=== PATIENT | male | born 1950 | race Caucasian/White ===

== ENCOUNTER 2017-08-02 11:52 | Outpatient (CLI) | payer MEDICARE | END 2017-08-02 11:53 | disposition home or self-care (01) | LOC: BICRAD 11:52 | PROVIDERS: ATTEND Internal Medicine Endocrinology, Diabetes & Metabolism | DX: R06.02 Shortness of breath (principal); R91.8 Other nonspecific abnormal finding of lung field | CPT/HCPCS: 71046 ==

== ENCOUNTER 2017-10-12 15:58 | Outpatient (CLI) | payer MEDICARE ==
--- NOTE | 2017-10-12 16:44 | RAD ---
CHEST 2 VIEWS: Date: 10/12/17 HISTORY: Bronchitis. COMPARISON: CT chest dated 08/07/17. FINDINGS: There is abnormal mass in the left upper lobe with peripheral pneumonitis. There are advanced emphyse matous changes. There is also a possible nodule in the left lower lobe. IMPRESSION: 1. Large left upper lobe mass concerning for malignant process. 2. Abnormal density in the left lower lobe concerning for metastatic disease. POS: [facility]
== END 2017-10-12 15:59 | disposition home or self-care (01) ==
LOC: SCSRAD 15:58
PROVIDERS: ATTEND Family Medicine
DX: J40 Bronchitis, not specified as acute or chronic (principal); R91.8 Other nonspecific abnormal finding of lung field
CPT/HCPCS: 71046

== ENCOUNTER → 2017-10-16 | Outpatient (CLI) | payer MEDICARE ==
[~2017-10-16] MED LIST: Gadobenate Dimeglumine 529 MG/1 ML (20ML VIAL) ONE
--- NOTE | 2017-10-16 09:36 | ULT ---
SONOGRAM ABDOMEN COMPLETE: History: Abdominal pain. Cirrhosis. FINDINGS: Gallbladder wall thickening, in the setting of ascites and chronic liver disease, is nonspecific. No shadowing stones are visible. Common duct is 0.4 cm. Liver is small, heterogeneous and has a nodular contour. Small amount of free fluid within the abdomen is predominately in the right upper quadrant. Spleen is 13.9 cm length. Portal vein is patent. The kidneys and visualized portions of the abdominal aorta, IVC, and pancreas are unremarkable. IMPRESSION: 1. Cirrhotic appearance of the liver. Findings of portal venous hypertension including ascites and mi ld splenomegaly. 2. No evidence of biliary obstruction. POS: [facility]
--- NOTE | 2017-10-16 10:36 | MRI ---
MRI ABDOMEN WITHOUT AND WITH CONTRAST: History: Cirrhosis. Dyspepsia. Comparison: CT abdomen/pelvis, 12-01-11 Technique: Multiplanar, multisequence MR images were obtained of the abdomen without and with IV cont rast. FINDINGS: This exam is limited secondary to significant motion artifact. The liver is nodular and cirrhotic. Th ere is a moderate amount of ascites. There are multiple lesions scattered throughout the liver demons trating high T2 signal. These lesions are irregular in appearance and have peripheral rim enhancement . This central aspect of these lesions do not enhance completely and no significant washout is seen w hen comparing the arterial phase images to the delayed phase images. The largest lesion measures 6.2 cm in size. These lesions are nonspecific but are concerning for either metastatic disease or multifo jose abscesses in the liver. These do not have characteristics of hemangiomas or hepatocellular carcin juan. The kidneys, adrenal glands, gallbladder, spleen, and pancreas are unremarkable. No abdominal adenopathy is seen. There are enhancing lesions within the vertebral bodies in the thora cic spine measuring up to 3.5 cm in size, concerning for osseous metastases. IMPRESSION: 1. Cirrhosis with ascites. 2. Multiple scattered lesions throughout the liver are concerning for hepatic metastatic disease. Pro bable source for this metastatic disease is uncertain. 3. There appear to be enhancing lesions within some of thoracic vertebral bodies concerning for osseo us metastases. POS: [facility]
== END ==
LOC: SCSULT 07:06
PROVIDERS: ATTEND Internal Medicine Gastroenterology
DX: K74.60 Unspecified cirrhosis of liver (principal); K30 Functional dyspepsia; R93.8 Abnormal findings on diagnostic imaging of other specified body structures; R18.8 Other ascites; K76.9 Liver disease, unspecified; M89.9 Disorder of bone, unspecified; R16.1 Splenomegaly, not elsewhere classified; K76.6 Portal hypertension
CPT/HCPCS: 74183; 76700; A9579

== ENCOUNTER 2017-10-24 16:50 | Inpatient (IN) | payer MEDICARE ==
[2017-10-24 17:36] LABS: #Eosinphils 0.1 thou/uL (0.0-0.7); #Lymphocytes 0.7 thou/uL (1.20-3.40); #Monocytes 0.5 thou/uL (0.11-0.59); #Neutrophils 3.7 thou/uL (1.40-6.50); %Basophils 0.9 % (0.0-1.0); %Eosinophils 1.2 % (0.0-10.0); %Lymphocytes 13.3 % (21.0-51.0); %Monocytes 9.3 % (0.0-10.0); %Neutrophils 75.3 % (42.0-75.0); Hemoglobin 13.7 g/dL (14.0-18.0); Mean Corpuscular HGB CONC 34.2 g/dL (32.0-36.0); Mean Corpuscular Hemoglobin 35.6 pg (27.0-31.0); Mean Platelet Volume 7.1 fL (7.4-10.4); Platelet Count 173 thou/uL (130-400); RBC Distribution Width 12.7 % (11.5-14.5); Red Blood Cell (RBC) Count 3.84 mill/uL (4.70-6.10); White Blood Cell (WBC) Count 4.9 thou/uL (4.8-10.8)
[2017-10-24] MEDS ORDERED: Acetaminophen 500 MG TAB ONE (17:52)
[2017-10-24] MEDS ORDERED: Lidocaine Viscous Sol 2% 15 ml UD Cup ONE (17:52)
[2017-10-24 17:59] LABS: ALT (SGPT) 20 U/L (8-55); AST (SGOT) 50 U/L (5-34); Alkaline Phosphatase 242 U/L (40-150); Anion Gap 14 mmol/L (10-20); BUN (Urea Nitrogen) 26 mg/dL (8.4-25.7); CK (CPK) 57 U/L (30-200); Calc. Creatinine Clearance 0 mL/min (70-130); Carbon Dioxide 22 mmol/L (23-31); Chloride 104 mmol/L (98-107); Estimated GFR-MDRD 64; Globulin 3.8 g/dL (2.4-3.5); Glucose 182 mg/dL (80-115); Potassium 4.4 mmol/L (3.5-5.1); Protein, Total 6.8 g/dL (5.8-8.1); Sodium 136 mmol/L (136-145)
[2017-10-24] MEDS ORDERED: Ondansetron HCl/PF 4 MG/2 ML Vial IVP PRN (19:06)
--- NOTE | 2017-10-24 20:57 | RAD ---
PA AND LATERAL OF THE CHEST: 10/24/17 INDICATION: History of lung mass. IMPRESSION: The examination is not appreciably changed from the comparison dated 10/12/17. Linear opacity within the left upper lobe persists, though it is slightly less prominent. Chronic janis g changes are similar. Mild cardiomegaly is stable. No pleural effusion or pneumothorax is evident. n o acute osseous abnormality is evident. Would recommend a followup CT of the thorax to further evaluate the etiology of the opacity in the le ft upper lobe. There is concern for possible nodularity in the left lung base on the comparison radio graph. It is not as well detailed on the current examination. If there is concern for possible metast atic disease within the lungs, this can be further assessed with a followup CT. Code T POS: [facility]
[2017-10-24] MEDS: Sodium Chloride 0.9% 1,000 ML IV SCH (21:38)
[2017-10-24] MEDS: Zolpidem Tartrate 5 MG TAB PO PRN (21:39)
[2017-10-24] MEDS: HYDROcodone/Acetaminophen 7.5/325 mg Tablet PO PRN (21:39)
[2017-10-24 22:27] VITALS: BMI 34.6
--- NOTE | 2017-10-25 01:56 | HP ---
DATE OF CONSULTATION: 10/24/2017 HISTORY OF PRESENT ILLNESS: This is a 67-year-old white male being admitted for dehydration and weak ness. Patient's history is somewhat complicated. He has a history of bladder cancer followed by Dr. Jones and treated with intravesicular BCG several months prior. He has completed that therapy and continues to see Urology. However, several months ago, he was also diagnosed with TB and has been f ollowed by Dr. Gerardo and received several medications including INH, rifampin, B6, and ethambutol. T he ethambutol was eventually stopped. In the meantime, he was seen several weeks ago by myself in [facility] office and he was complaining of moderate cough. A chest x-ray was done, which revealed a large le ft upper lobe lung mass. The patient then went to see Dr. Aguilar at [facility] who has been working [facility] up for the lung mass. Radiology felt it was not amenable to biopsy to the chest wall and suggested a possible bronchoscopy. In the meantime, x-rays revealed lesions in the liver and the spine. He w as referred to Dr. Lewis where a liver biopsy is pending. He did receive a paracentesis and 4 liters of fluid was withdrawn, which did not reveal any malignant cells. He was then started on spironolact one 100 daily, and Lasix 40 daily. When the lung mass was diagnosed he was also started on Levaquin daily. He presents today in the office, complaining of severe dry and painful throat. His throat wa s noted to be quite red and dry, suggestive of a possible Thuy esophagitis. He was then referred to the emergency room for hydration. The patient was very resistant to being admitted to the [facility]; however, he finally agreed to be admitted. Other workup has included negative carotid Doppler ult rasound as well as negative lower extremity Doppler study. He has been followed by Dr. Gorman and a stress test is pending. PAST MEDICAL HISTORY: Hypertension; diabetes; hyperlipidemia; sleep apnea on CPAP, 75-pack a year to bacco history; erectile dysfunction; diverticulosis; history of peptic ulcer disease; history of feve r blisters; arthritis; bladder cancer, diagnosed in 04/2015; and skin cancer. ALLERGIES: None. PAST SURGICAL HISTORY: Include vocal cord nodule removal by Dr. Arndt in 07/2006, tonsillectomy, ci rcumcision, eyelid surgery in 2013, facial basal cell carcinoma removal in 2014. MEDICATIONS: Gabapentin 300 three times a day, INH 300 daily, pyridoxine 50 mg daily, rifampin 300 t wo daily, vitamin D daily, fish oil daily, aspirin 81 daily, losartan 25 1/2 tab q.a.m., previously o n Levaquin and previously on Medrol. FAMILY HISTORY: Father at 62 of lung cancer. Mother at 78 with heart failure and l eukemia. Sister with breast cancer, . Several include prostate cancer and one sister with breast cancer at age of 29. SOCIAL HISTORY: Patient has a 75-pack a year tobacco history, he quit in 2004. Drinks alcohol occas ionally. He runs a very successful construction company. He is . He has 4 daughters. Drink s occasional coffee with minimal exercise. REVIEW OF SYSTEMS: As above. PHYSICAL EXAMINATION: VITAL SIGNS: Temperature is 98.5, heart rate was 96, blood pressure 120/65, O2 sat 94. GENERAL: The patient was in moderate distress, mainly because of dry mouth. NECK: Supple. HEART: Regular rate and rhythm. LUNGS: Relatively clear, may be decreased breath sounds in left side. ABDOMEN: Obese, distended with ascites present. EXTREMITIES: With no edema. LABORATORY DATA: White count 4.9, H&H 13.7 and 40.0, platelet 173,000. Sodium 136, potassium 4.4, c reatinine 1.15, BUN 26, glucose 182. ASSESSMENT: 1. Left lung mass, rule out primary cancer, rule out tuberculous lesion, rule out pneumonia. 2. Liver lesions, rule out primary versus metastatic lesions. 3. Liver cirrhosis, probably leading to ascites. Recent paracentesis was negative for malignancy. AFP was also normal. 4. History of recent bladder cancer, completing intravesicular BCG. 5. Oral yeast esophagitis. 6. Diabetes. 7. Hypertension. 8. Hyperlipidemia. 9. Spinal lesions, rule out mets. 10. History of recent TB being treated by Dr. Gerardo. 11. 75-pack a year tobacco history. PLAN: 1. We will discuss case with Dr. Lewis, Dr. Gerardo, and Dr. Gorman. It might be in patient's best int erest simply complete workup while in the hospital. He has outpatient stress test pending on Sunday and another procedure pending on Sunday. However, the patient remains in moderate distress. 2. Resume spironolactone 100 daily and Lasix 40 daily. Consider decreasing the dose. 3. Insulin sliding scale. 4. Initiate Diflucan. 5. Consult Dr. Lewis. 6. Consult Dr. Gerardo. 7. Consult Dr. Gorman. 8. Consult Pulmonary to evaluate the lung mass. 9. For tonight, we will hydrate the patient and initiate Diflucan and make further decisions in the a.m.
[2017-10-25] MEDS: HYDROcodone/Acetaminophen 7.5/325 mg Tablet PO PRN ×4 (04:53→19:28)
[2017-10-25 05:26] LABS: ALT (SGPT) 19 U/L (8-55); AST (SGOT) 45 U/L (5-34); Alkaline Phosphatase 233 U/L (40-150); Anion Gap 12 mmol/L (10-20); BUN (Urea Nitrogen) 23 mg/dL (8.4-25.7); Bilirubin, Total 1.8 mg/dL (0.2-1.2); Calc. Creatinine Clearance 101 mL/min (70-130); Carbon Dioxide 24 mmol/L (23-31); Chloride 105 mmol/L (98-107); Estimated GFR-MDRD 62; Globulin 3.7 g/dL (2.4-3.5); Glucose 181 mg/dL (80-115); Potassium 4.4 mmol/L (3.5-5.1); Protein, Total 6.7 g/dL (5.8-8.1); Sodium 137 mmol/L (136-145)
[2017-10-25 05:34] LABS: #Eosinphils 0.1 thou/uL (0.0-0.7); #Lymphocytes 0.8 thou/uL (1.20-3.40); #Monocytes 0.4 thou/uL (0.11-0.59); #Neutrophils 2.6 thou/uL (1.40-6.50); %Basophils 1.1 % (0.0-1.0); %Eosinophils 1.3 % (0.0-10.0); %Lymphocytes 19.7 % (21.0-51.0); %Monocytes 10.8 % (0.0-10.0); %Neutrophils 67.2 % (42.0-75.0); Hemoglobin 13.4 g/dL (14.0-18.0); Mean Corpuscular Hemoglobin 35.9 pg (27.0-31.0); Mean Platelet Volume 6.9 fL (7.4-10.4); Platelet Count 175 thou/uL (130-400); RBC Distribution Width 12.8 % (11.5-14.5); Red Blood Cell (RBC) Count 3.73 mill/uL (4.70-6.10); White Blood Cell (WBC) Count 3.8 thou/uL (4.8-10.8)
--- NOTE | 2017-10-25 08:07 | PRG ---
DATE OF SERVICE: 10/25/2017 SUBJECTIVE: The patient is feeling much better this morning. He appears in much less distress afte r hydration. No reported fever. OBJECTIVE: VITAL SIGNS: Temperature 98.3, pulse 88, respirations 16, blood pressure 132/67. Pulse ox 94. HEART: Regular rate and rhythm. LUNGS: Clear. ABDOMEN: Soft with ascites. EXTREMITIES: With no edema. LABORATORY: Sodium 137, potassium 4.4, creatinine 1.18, BUN 23, glucose 181. White count 3.8, H&H 13 and 39, platelet 175. Chest x-ray unchanged. ASSESSMENT: 1. Left lung mass, rule out primary cancer versus TB versus pneumonia. 2. Liver lesion, rule out primary versus metastatic lesion. 3. Liver cirrhosis with ascites. 4. History of recent bladder cancer treated with intravesicular BCG. 5. Yeast esophagitis. 6. Diabetes. 7. Hypertension. 8. Hyperlipidemia. 9. Spinal lesion, rule out. 10. History of recent TB being treated by Dr. Gerardo, possibly from bladder treatment. 11. Twenty-five year tobacco history. PLAN: 1. Dr. Lewis, Dr. Gerardo and Dr. Bush to see the patient today. 2. Insulin sliding scale. 3. Viscous lidocaine swallow for throat discomfort. May have yeast esophagitis. 4. We will perform a followup CT scan of the chest.
--- NOTE | 2017-10-25 08:41 | CT ---
CT CHEST WITH CONTRAST: Technique: Multiple axial tomograms were obtained through the chest with IV enhancement. Indications: Abnormal mass density seen in the left upper lung on chest radiograph. FINDINGS: There is a left hilar mass which is suspicious for neoplasm. This mass measures 4.1 cm AP dimension i n the axial plane. This mass encompasses and narrows the left main pulmonary artery. There is extensi on of this soft tissue mass into the left upper lung parenchyma. The parenchymal portion of this mass in the axial plane measures 4.7 cm AP dimension. There is cardiomegaly with vascular congestion. Interstitial prominence is present suggesting mild in terstitial edema. Small left pleural effusion. There is a 7 mm nodule in the left lower lobe peripherally. This nodule was present on the prior exam in 2006. There is a 7 mm nodule in the right middle lobe and another smaller 4-5 mm nodule in the right middle lobe. Images through the upper abdomen reveal to large volume ascites. There are numerous low density lesio ns seen in the liver which are suspicious for metastatic disease. There is a 3.5 cm low density in th e peripheral right lobe along the lateral border of the liver. There is a 2.5 cm lesion in the instrument worker ior left lobe and an ill-defined 2.5 cm lesion in the more anterior left lobe. There are other smalle r lesions throughout both lobes of the liver. IMPRESSION: 1. Left hilar mass lesion with mass extending into the parenchyma of the left upper lobe as described above. Findings are consistent with neoplasm. 2. There is cardiomegaly with vascular congestion and evidence of interstitial edema. 3. Small left effusion. 4. Moderate abdominal ascites noted on images through the upper abdomen. 5. Numerous low density lesions in the liver are concerning for metastatic disease. 6. There are scattered small pulmonary nodules seen as described above. POS: [facility]
[2017-10-25] MEDS ORDERED: Lidocaine 4% PF 5 ML AMP NEB SCH (09:15)
--- NOTE | 2017-10-25 10:01 | CON ---
DATE OF CONSULTATION: 10/25/2017 CONSULTING: Dr. Rell Barba REASON FOR CONSULTATION: Lung mass. HISTORY OF PRESENT ILLNESS: This is a 67-year-old male who was admitted through Dr. Barba's office to the hospital after presenting yesterday with dehydration, weakness and voice hoarseness. He has a quite convoluted medical history. In 2015, he was diagnosed with transitional cell carcinoma of the bladder. At some point earlier this year he received BCG treatment to that and developed symptoms o f what Dr. Gerardo feels is disseminated BCG, although that entity is difficult to prove. The patient has been on rifampin, INH and ethambutol for that. Apparently symptoms got so bad that he was seen a t [facility] and was intubated back in July and spent 3 days on mechanical ventila tion. At that time it was realized he had a lung mass. He also had liver metastasis and spinal meta stasis as well as ascites. Dr. Aguilar was involved in that workup and I believe the decision was ma de to biopsy the patient's liver percutaneously. The family states that Radiology cancelled the proc edure when they found that the patient had only been off aspirin one day prior to the procedure. A repeat biopsy was planned for this week. He had a paracentesis done last week with about 3 liters of fluid removed, but that was not diagnostic for cancer. I have had the opportunity today to sit down with Radiology and review the films from [facility]. He had a CT done about 3 weeks ago there. He also had a repeat CT done today here. It shows an approximate 4 x 6 left hilar lung mass radiating towards the apical posterior segment o f the left upper lobe. The liver metastases were noted. He also had significant ascites. It does n ot appear that the lung mass has changed in size much since that scan done [address] Barba has decided that the patient would benefit from having a diagnosis at this time while he i s in the hospital. Therefore, bronchoscopy is planned for tomorrow. PAST MEDICAL HISTORY: See above. Additionally, the patient has hypertension, diabetes mellitus type 2, hyperlipidemia, obstructive sleep apnea requiring CPAP, erectile dysfunction, peptic ulcer diseas e, arthritis, transitional cancer of the bladder, skin cancer. PAST SURGICAL HISTORY: 1. He had vocal cord nodule removed in 2006. 2. Tonsillectomy. 3. Circumcision. 4. Eyelid surgery. ALLERGIES: None. MEDICATIONS PRIOR TO ADMISSION: Gabapentin 300 mg take 3 times daily, INH 300 mg daily, paroxetine 5 0 mg daily, rifampin 300 mg - 2 tablets daily, vitamin D 2000 international units daily, fish oil 1 t ablet daily, aspirin 81 mg daily, losartan 12.5 mg daily, previously on Levaquin, previously on Medro l. FAMILY MEDICAL HISTORY: Father of lung cancer. Mother of heart failure and leukemia. Sis ter with breast cancer. SOCIAL HISTORY: The patient has a 2-3 pack per day history of smoking for about 25 years. He quit i n 2004. He occasionally drinks alcohol. He runs a construction company. He is , has 4 daugh ters. REVIEW OF SYSTEMS: Remarkable for dysphagia, odynophagia, vocal cord hoarseness. He has lost a sign ificant amount of weight. He is very weak. Otherwise, 12 point review of systems negative. PHYSICAL EXAMINATION: VITAL SIGNS: Temperature 97.5, pulse 91, respirations 24, O2 sat 91% on room air, blood pressure 111 /56. HEENT: Pupils react. Sclerae anicteric. Oropharynx; he has candidiasis on his tongue. NECK: No JVD. LUNGS: He has a few wheezes heard on the left chest. Right side clear. CARDIAC: S1, S2 regular. No audible murmur, rub or gallop. ABDOMEN: Distended. Ascites present. EXTREMITIES: No clubbing, cyanosis, or edema. LABORATORY DATA: White blood cell count 3.8, hematocrit 39.5, platelet count 175. Sodium 137, potas sium 4.4, chloride 105, CO2 24, BUN 23, creatinine 1.2, glucose 181, alkaline phosphatase 233. Review of the CT films and chest x-ray was performed - see what is written above in history of prese nt illness. ASSESSMENT: 1. Left upper lobe lung mass which is most likely malignancy. 2. Disseminated BCG. The patient does not have a mycobacterial tuberculosis infection. 3. Transitional cell cancer of the bladder. PLAN: Bronchoscopy tomorrow. This will be done under general anesthesia. I discussed the risk of t he procedure with the patient including bleeding, infection, accidental pneumothorax and possible moisés ction to the sedation. He is agreeable to proceed. The patient will be seen in consultation by GI f or possible paracentesis and also be seen in consultation by Oncology. This consultation encompassed 70 minutes time, of that time, greater than 50% was spent with the pa tracy, the patient's family, and on the patient's unit in the hospital.
[2017-10-25] MEDS: Enoxaparin Sodium 40 MG/0.4 ML SYRINGE SC SCH (10:39)
[2017-10-25] MEDS: Lidocaine Viscous Sol 2% 15 ml UD Cup SSW PRN ×2 (10:46→18:25)
[2017-10-25] MEDS ORDERED: Fluconazole In NaCl,Iso-Osm 200 MG in Premix Bag 1 BAG IVPB SCH (11:00)
[2017-10-25] MEDS ORDERED: ADMIXTURE FEE CHEMO IVPB SCH (11:15)
[2017-10-25] MEDS ORDERED: NACL ISO OSM IVPB SCH (11:15)
[2017-10-25] MEDS ORDERED: FLUCONAZOLE IVPB SCH (11:15)
[2017-10-25 13:22] LABS: INR-International Normal Ratio 1.1; PTT 41.4 SEC (22.9-36.1); Prothrombin Time 14.3 SEC (12.0-14.7)
--- NOTE | 2017-10-25 13:31 | CON ---
DATE OF CONSULTATION: 10/25/2017 GI INPATIENT CONSULTATION NOTE REQUESTING PHYSICIAN: Dr. eRll Barba. REASON FOR CONSULTATION: Liver lesions and cirrhosis. HISTORY OF PRESENT ILLNESS: Mina Redmond Jr. is a 67-year-old gentleman, patient of my GI colleague, Dr. Francisco Lewis. Mr. Redmond has a complicated recent medical history. He was receiving BCG treatment f or bladder cancer earlier this year. He developed what was thought to represent a disseminated BCG a nd has been treated for this under the direction of Dr. Gerardo, he was hospitalized in July at the [facility] with respiratory issues, and at that time, imaging demonstrated a left-sided lung mass. He has been undergoing some workup for this. Through this time, the patient also began to have issues with abdom inal distention and was found to have ascites. Dr. Lewis has been working up for this. Recent MRI on 10/16/2017 demonstrated nodular and cirrhotic liver contour, but also multiple lesions in the liver measuring up to 6.2 cm. These lesions were thought to represent metastatic disease versus abscesses and did not have an appearance consistent with hepatocellular carcinoma. There are also multiple oss eous lesions in the thoracic spine most consistent with metastatic disease. Dr. Lewis performed some further lab workup for the liver. The patient had a positive ZAIDA, but negative viral hepatitis serol ogies, ferritin was mildly elevated, but hereditary hemochromatosis genetic testing showed only heter ozygosity for the H63D mutation, so no hemochromatosis. AFP was normal at 2.5. Dr. Lewis send him fo r first paracentesis, 4 liters were removed a week ago on 10/17/2017. Fluid cytology was negative. The SAAG was 2.8, signifying consistency with portal hypertension. Dr. Lewis started the patient on L asix 40 mg daily and spironolactone 100 mg daily, but the patient only took 3 days of this. He says that he felt a lot better after the paracentesis, but that now he is again having uncomfortable abdom inal distention and some associated pain and he would like more fluid removed as possible. He was ad mitted to the hospital yesterday and found to have some mild dehydration and he is going to be gettin g further workup for the lung mass. Dr. Bush has seen him and bronchoscopy is scheduled for [facility]. The patient was also noted to have a sore throat and had developed hoarseness just over the pas t week, and was started on fluconazole for what appears to be oropharyngeal Thuy. REVIEW OF SYSTEMS: Full review of systems including constitutional, head, eyes, ears, nose, throat, GI, , cardiovascular, respiratory, musculoskeletal, and neurologic systems is negative except as no bandar in HPI. PAST MEDICAL HISTORY: 1. History of bladder cancer, status post BCG treatments earlier this year. 2. Possible disseminated BCG, treated by Dr. Gerardo. 3. Hypertension. 4. Hyperlipidemia. 5. Diabetes. 6. Obstructive sleep apnea. 7. A 75 pack years of smoking history, quit in 2004. 8. Erectile dysfunction. 9. Diverticulosis. 10. Peptic ulcer disease. 11. Cirrhosis secondary to nonalcoholic steatohepatitis. 12. Left lung mass, currently being worked up. ALLERGIES: No known drug allergies. OUTPATIENT MEDICATIONS: Gabapentin, INH, pyridoxine, rifampin, vitamin D, fish oil, aspirin 81 mg da melani, losartan. FAMILY HISTORY: Father at age 62 of lung cancer. Mother with heart failure and myla kemia. One sister of breast cancer at age 29. SOCIAL HISTORY: The patient is a 43-[id number]-fuxs history of smoking, but he quit in 2004. Alcohol use is occasional. PHYSICAL EXAMINATION: VITAL SIGNS: Temperature 98.5, pulse 87, blood pressure 122/67, 91% oxygen saturation on room air. GENERAL: A 67-year-old gentleman, appearing chronically ill, lying in bed comfortably in no distress . SKIN: No jaundice, no rash visible or palpable. EYES: No scleral icterus. Extraocular movements intact. There is some subtle white plaque to the t ongue. ENT: Mucous membranes moist, no oral lesions. LYMPH: No submandibular or supraclavicular lymphadenopathy. THYROID: Nontender to palpation. HEART: Regular rate and rhythm. LUNGS: Decreased breath sounds at the bases bilaterally. No wheezing. ABDOMEN: Moderately distended with ascites. There is a positive fluid wave. There is mild tenderne ss to palpation, but no guarding, rebound tenderness. EXTREMITIES: No peripheral edema. VESSELS: Radial pulses 2+ bilaterally. NEUROLOGICAL: Cranial nerves II-XII intact bilaterally. No focal deficits. LABORATORY STUDIES: Hemoglobin 13.4, WBC is 3.8, platelets 175. Sodium 137, potassium 4.4, BUN 23, creatinine 1.18, glucose 181, total bilirubin 1.8, alkaline phosphatase 233, AST 45, ALT 19, albumin 3.0. IMAGING STUDIES: On 10/25/2017, CT of the chest demonstrated a left hilar mass measuring up to 4.7 x 4.1 cm. This encompasses the left pulmonary artery. There is cardiomegaly and vascular congestion. There is a large amount of ascites with numerous liver lesions measuring up to 3.5 cm and metastati c disease is suspected. ASSESSMENT AND PLAN: 1. Ascites, it appears secondary to initial decompensation of cirrhosis, possibly also related to on set of pulmonary hypertension given compromise of the left pulmonary artery seen on chest imaging. T he patient has had only one paracentesis of 4 liters about a week ago, and has already reaccumulated ascites and uncomfortable. In the longer term, the patient will need diuretic therapy and I would ag ree with Lasix 40 mg daily and spironolactone 100 mg daily to start. I think this could be started t omorrow. I do think he would benefit from therapeutic paracentesis now, particularly with bronchosco py coming up tomorrow, so will order an ultrasound guided paracentesis. Cytology was negative on his recent paracentesis, but I think it would be reasonable to repeat the cytology on this tap. The pat ient also needs to be on a low sodium diet which he says he is trying to do. 2. Cirrhosis, it appears secondary to nonalcoholic steatohepatitis. Dr. Lewis performed fairly exten sive liver lab workup in recent weeks. Note he has a positive ZAIDA, but LFTs are not really elevated to the degree that I would expect with autoimmune hepatitis. Hemochromatosis genetic profile was neg ative. Viral hepatitis serologies were negative. 3. Multiple liver lesions, likely representing metastatic disease. 4. Left-sided lung mass, this is being evaluated by Dr. Bush. The patient is set for bronchoscop y tomorrow. 5. Oropharyngeal thrush. The patient was started on Diflucan and I agree with this. Thank you for the consultation. GI will follow along. Please call any time with questions or concer ns.
[2017-10-25] MEDS ORDERED: Sodium Bicarbonate 2.5 MEQ/5 ML VIAL ONE (13:49)
[2017-10-25] MEDS ORDERED: Lidocaine 1% PF 5 ML VIAL ONE (13:49)
--- NOTE | 2017-10-25 15:07 | ULT ---
SONOGRAPHIC GUIDED PARACENTESIS: HISTORY: Liver disease. Recurrent ascites. PROCEDURE: After explaining the procedure and answering all questions, sonographic survey of the abdomen shows a large amount of free fluid. Sterile technique, buffered local anesthesia, sonographic guidance, and a right lateral approach were used to carefully advance a 19 gauge Yueh needle and catheter into the free fluid. The catheter was left to drain a total volume of 5.5 L of dark yellow liquid. A portio n was sent to the laboratory for evaluation. The catheter was removed. Minimal fluid remained. The patient tolerated the procedure well and was returned in improved condition. IMPRESSION: Technically successful sonographic guided paracentesis. Laboratory analysis of the fluid is pending. POS: [facility]
[2017-10-25] MEDS ORDERED: ISOVUE-370 76%-LOCM 1 ML ONE (15:18)
[2017-10-25] MEDS: Zolpidem Tartrate 5 MG TAB PO PRN (20:16)
[2017-10-25] MEDS: Sodium Chloride 0.9% 1,000 ML IV SCH (21:02)
--- NOTE | 2017-10-25 21:29 | CON ---
DATE OF CONSULTATION: 10/25/2017 HISTORY OF PRESENT ILLNESS: A 67-year-old gentleman whom I had seen at [facility] as well as in the clinic. The patient had been diagnosed with bladder cancer, which had been managed with BCG installation at [facility]. At the beginning of this year, he developed fever. He was given INH and rifampin without clear-cut improvement. Subsequently, he decompensated and developed sepsis, respiratory failure and up intubated at [facility], admitted to the ICU. He was switched to INH, rifampin, ethambutol, and Levaquin with rapid improvement; eventually was discharged. I saw him on 08/29/2017. He had some diarrhea and had previously a mass identified in the left lung which had been followed by Dr. Aguilar at [facility]. We decided to stop levofloxacin. His C. difficile antigen test done and was negative. A few days later, he still had some loose stools, but had felt improvement. We decided to continue INH, rifampin, ethambutol for the diagnosis of disseminated BCG infection until 01/05/2018. I followed him up on 10/04/2017 and at that time, he had one episode of fever of 101 and he said on some days he felt great and some days he did not feel so well. Since then, patient has seen Dr. Lewis and he had an abdominal MRI, which showed cirrhosis with ascites, multiple scattered lesions throughout the liver which were concerning for metastatic disease. There are some enhancing lesions within some thoracic vertebral bodies as well concerning for osseous metastases. Subsequently, he had paracentesis, a large volume and I will see the results of the paracentesis evaluation. The next visit with his PCP, Dr. aBrba, the patient had developed a sore throat and dysphonia, general malaise. He was felt to have erythematous oral cavity and pharynx. He was admitted then. Dr. Bush has evaluated the patient as well because of the mass in the lungs and I think he is scheduled tomorrow for bronchoscopy. He is still dysphonic at this time, but somewhat improved. Denies any headaches, no visual symptoms, no back pain. The abdomen is much better after paracentesis. There is no genital symptoms, no joint symptoms outside the involved area, is oriented , follows commands. PAST MEDICAL HISTORY: Hypertension, type 2 diabetes, bladder cancer with BCG treatment at [facility], subsequent development of disseminated BCG infection, treated at the [facility] with improvement after 4-drug regimen; lung mass, which was identified during the stay at [facility] and this had been managed elsewhere. Now, the diagnosis of liver cirrhosis by imaging study. ALLERGIES: None. PAST SURGICAL HISTORY: Vocal cord nodule resected, tonsillectomy, facial basal cell carcinoma. MEDICATIONS: Gabapentin, INH, pyridoxine, rifampin, and ethambutol. FAMILY HISTORY: Lung cancer, leukemia. SOCIAL HISTORY: 75 pack year tobacco history, quit in 2004. Drinks occasionally. He is . CURRENT MEDICATIONS: Include, [place], DuoNeb, Lovenox, fluconazole, lidocaine. PHYSICAL EXAMINATION: VITAL SIGNS: T-max 98.5, blood pressure 120/56, pulse 88, respirations 16, O2 sat 95%. SKIN: Normal. Peripheral IV access. The patient is voiding spontaneously. No lymphadenopathy. HEENT: Ocular movements conjugate. Oral cavity appeared normal at this time. Numerous teeth in place with expected decay. NECK: Supple, jugular vein distention. LUNGS: Symmetric air entry. HEART: S1, S2, regular rate. ABDOMEN: Soft, no tenderness. No obvious ascites. No genital abnormalities. EXTREMITIES: No joint inflammatory activity. No edema. Pulses 1+ in dorsalis pedis. Moves extremities equally. NEUROLOGIC: Cognitive function appears to be intact. LABORATORY DATA: White cell count is 4.9 and 3.8. Hemoglobin 13.7, platelets 175, 67% neutrophils. INR 1.1. Sodium 137, creatinine 1.18, bilirubin 1.8, AST 45, ALT 19, alkaline phosphatase 233, albumin 3.0. Chest CT scan showed left hilar mass lesion with extension into the parenchyma of the left upper lobe , has cardiomegaly with vascular congestion, small left pleural effusion, moderate ascites, low density lesions in liver, scattered small pulmonary nodules. ASSESSMENT: 1. Hypertension. 2. Diabetes mellitus type 2. 3. Bladder cancer being managed with BCG instillation with disseminated BCG infection, currently on treatment with rifampin, ethambutol and INH. 4. Left lung lesion, which has been identified a few months ago, and has not yet been diagnosed. Now he has evidence of cirrhosis, other liver lesions, some possible spinal lesions as well. He has some evidence of dysphonia with possible laryngeal inflammatory changes. I did not see any evidence of oral candidiasis, but this is after a day or two of Diflucan. DISCUSSION: The liver lesions could correspond to either malignancy with metastasis or the granulomas from disseminated BCG infection. This is quite a few months after the original initiation of treatment, so I would not expect for him to still have those abnormalities in the liver, so I am afraid that this probably will end up turned out to be a malignancy. The lung lesion is very suspicious for primary lung malignancy as well. In terms of the treatment for the distant disseminated BCG infection, the plan was to continue rifampin, INH and ethambutol until January 05 and I would still probably continue this combination until that particular date. MTDD
[2017-10-26] MEDS: Acetaminophen 325 MG TAB PO PRN ×2 (01:45→21:28)
[2017-10-26] MEDS ORDERED: Lidocaine 2% 10 ML INJ ONE (06:54)
[2017-10-26] MEDS ORDERED: Albuterol Sulfate 2.5 mg/3 ml Neb ONE (07:01)
[2017-10-26] MEDS ORDERED: Midazolam HCl 2 mg/2 ml Vial ONE (07:37)
[2017-10-26] MEDS ORDERED: Dexmedetomidine 200 MCG/2 ML VIAL ONE (07:37)
[2017-10-26] MEDS ORDERED: Fentanyl 100 MCG/2 ML VIAL ONE (07:38)
[2017-10-26] MEDS ORDERED: Lidocaine 4% Topical Sol 50 ML BOT ONE (07:44)
[2017-10-26] MEDS ORDERED: Fluconazole In NaCl,Iso-Osm 200 MG in Premix Bag 1 BAG IVPB SCH (09:00)
[2017-10-26] MEDS: HYDROcodone/Acetaminophen 7.5/325 mg Tablet PO PRN ×3 (10:12→18:39)
--- NOTE | 2017-10-26 10:33 | OP ---
DATE OF PROCEDURE: 10/26/2017 SURGEON: Dr. Corby Bush PROCEDURE: Bronchoscopy. PREOPERATIVE DIAGNOSIS: Left upper lobe lung mass. POSTOPERATIVE DIAGNOSIS: Left upper lobe lung mass. ANESTHESIA: General endotracheal. DESCRIPTION OF PROCEDURE: The patient was brought to the endoscopy suite and placed on cardiopulmonary monitoring. Anesthesia intubated the patient with an 8.5 endotracheal tube under GlideScope guidance. Upon visualization of vocal cords during intubation, the patient had severe candidiasis present in the supraglottic area and on the vocal cords. An Olympus 2.0. bronchoscope was placed in the endotracheal tube through his endotracheal tube adaptor while the patient was on volume cycle ventilation. The viki was sharp. The right mainstem bronchus was normal. The right upper lobe, right middle lobe and right lower lobe were normal. The left mainstem bronchus was relatively normal up to the segment leading to the left upper lobe. Endobronchial tumor was present in the apical posterior segment. This was extremely friable and bled easily when brushed and biopsied. The left lower lobe appeared patent and unaffected by tumor. The procedure was complicated by bleeding. The patient had to have epinephrine instilled on the tumor. Numerous blood clots were removed. The tumor was biopsied with a brush and forceps. Washings were also obtained. The patient was sent to the recovery area in stable condition. [facility]
[2017-10-26] MEDS: FLUCONAZOLE IVPB SCH (11:56)
[2017-10-26] MEDS: ADMIXTURE FEE CHEMO IVPB SCH (11:56)
[2017-10-26] MEDS: NACL ISO OSM IVPB SCH (11:56)
[2017-10-26] MEDS: Enoxaparin Sodium 40 MG/0.4 ML SYRINGE SC SCH (13:04)
[2017-10-26] MEDS: Lidocaine Viscous Sol 2% 15 ml UD Cup SSW PRN ×2 (13:06→20:26)
[2017-10-26] MEDS ORDERED: PROPOFOL 200 MG/20 ML VIAL ONE (13:16)
[2017-10-26] MEDS ORDERED: Ondansetron HCl/PF 4 MG/2 ML Vial ONE (13:16)
[2017-10-26] MEDS ORDERED: Succinylcholine Chloride 20 MG/ML 10 ml SYRINGE FS ONE (13:16)
[2017-10-26] MEDS ORDERED: Dexamethasone 20 MG/5 ML VIAL ONE (13:16)
[2017-10-26] MEDS ORDERED: Furosemide 40 MG TAB PO SCH ×2 (13:42→13:45)
[2017-10-26] MEDS ORDERED: Spironolactone 100 MG TAB PO SCH ×2 (13:43→14:00)
--- NOTE | 2017-10-26 14:09 | PRG ---
DATE OF SERVICE: 10/26/2017 GI INPATIENT DAILY PROGRESS NOTE SUBJECTIVE: Mr. Redmond had a paracentesis of 5.5 liters yesterday with minimal residual fluid. Afterw baylee, he felt much better, particularly with regard to his respiratory status. This morning he was ab le to go for bronchoscopy which did demonstrate an endobronchial tumor which was biopsied. He is hav ing a little bit of respiratory distress right now which he attributes to the procedure. Sats are ok ay. No abdominal pain at this time. PHYSICAL EXAMINATION: VITAL SIGNS: Temperature 97.6, pulse 73, blood pressure 137/77, 96% oxygen saturation on room air. GENERAL: No acute distress. HEART: Regular rate and rhythm. LUNGS: Mild tachypnea. Clear to auscultation. ABDOMEN: Mild distention, no longer tense, soft and nontender to palpation throughout. EXTREMITIES: No peripheral edema. LABORATORY STUDIES: Glucose 184. No new CBC or CMP from this morning. ASSESSMENT AND PLAN: 1. Ascites. Patient is feeling much better after 5.5 liter paracentesis yesterday. We need to get him back on diuretics. I will start Lasix 40 mg daily and spironolactone 100 mg daily. He does need to be on a low sodium diet of less than 2000 mg of sodium per day. 2. Cirrhosis, secondary to nonalcoholic steatohepatitis. It looks like this is an initial decompens ation of cirrhosis, likely secondary to the stress of what appears to be malignancy. 3. Multiple liver lesions, suspect metastatic disease from the lung. 4. Lung mass. He had biopsy of an endobronchial tumor in the left lung earlier today. Suspicion is highest for malignancy. From a GI/liver perspective, the patient could be discharged from the hospital to follow up closely w josr Lewis or his Physician Hand Marker in the next 1-2 weeks. Continue with diuretics. Please call any time with questions or concerns.
[2017-10-26] MEDS: Sodium Chloride 0.9% 1,000 ML IV SCH (18:42)
[2017-10-26] MEDS: Zolpidem Tartrate 5 MG TAB PO PRN (20:26)
[2017-10-27] MEDS: Sodium Chloride 0.9% 1,000 ML IV SCH (04:02)
[2017-10-27] MEDS: Acetaminophen 325 MG TAB PO PRN ×3 (05:29→19:59)
[2017-10-27] MEDS: Lidocaine Viscous Sol 2% 15 ml UD Cup SSW PRN ×3 (05:59→19:59)
[2017-10-27] MEDS: HYDROcodone/Acetaminophen 7.5/325 mg Tablet PO PRN ×2 (07:41→12:34)
[2017-10-27] MEDS: Furosemide 40 MG TAB PO SCH (07:41)
[2017-10-27] MEDS: Spironolactone 100 MG TAB PO SCH (07:42)
[2017-10-27] MEDS: Enoxaparin Sodium 40 MG/0.4 ML SYRINGE SC SCH (07:42)
[2017-10-27] MEDS: FLUCONAZOLE IVPB SCH (12:36)
[2017-10-27] MEDS: ADMIXTURE FEE CHEMO IVPB SCH (12:36)
[2017-10-27] MEDS: NACL ISO OSM IVPB SCH (12:36)
--- NOTE | 2017-10-27 13:30 | PRG ---
DATE OF SERVICE: 10/27/2017 SUBJECTIVE: The patient is doing well except for the esophagitis and oral candidiasis, which he says is slowly improving. OBJECTIVE: VITAL SIGNS: Temperature 96.9, pulse 83, respirations 16, O2 sat 92%, blood pressure 106/64. HEENT: Unremarkable. NECK: No JVD. CHEST: Clear without wheezing. CARDIAC: S1 and S2 regular. ABDOMEN: Soft. EXTREMITIES: No edema. His bronch AFB was negative. The pathologic specimens are pending. ASSESSMENT: 1. Left upper lobe lung mass with metastasis to lungs and spine. 2. Ascites. 3. Cirrhosis. 4. Transitional cell cancer of the bladder. PLAN: 1. Await pathology. 2. Continuing the Diflucan.
[2017-10-27] MEDS ORDERED: Dextrose 5% in Water 1,000 ML IV PRN (18:22)
[2017-10-27] MEDS ORDERED: HumaLOG 300 UNITS/3 ML VIAL SC PRN (18:22)
[2017-10-27] MEDS ORDERED: Dextrose 50% Abboject 50 ML SYRINGE IVP PRN (18:22)
[2017-10-27] MEDS: HumaLOG 300 UNITS/3 ML VIAL SC PRN (19:12)
[2017-10-27] MEDS: Zolpidem Tartrate 5 MG TAB PO PRN (21:15)
[2017-10-28] MEDS: Sodium Chloride 0.9% 1,000 ML IV SCH (01:24)
[2017-10-28] MEDS: Acetaminophen 325 MG TAB PO PRN ×3 (06:15→14:40)
[2017-10-28] MEDS: Lidocaine Viscous Sol 2% 15 ml UD Cup SSW PRN (06:16)
[2017-10-28] MEDS: Furosemide 40 MG TAB PO SCH (08:42)
[2017-10-28] MEDS: Spironolactone 100 MG TAB PO SCH (08:42)
[2017-10-28] MEDS: Enoxaparin Sodium 40 MG/0.4 ML SYRINGE SC SCH (08:42)
[2017-10-28] MEDS: FLUCONAZOLE IVPB SCH (10:21)
[2017-10-28] MEDS: NACL ISO OSM IVPB SCH (10:21)
[2017-10-28] MEDS: ADMIXTURE FEE CHEMO IVPB SCH (10:21)
[2017-10-28] MEDS: HumaLOG 300 UNITS/3 ML VIAL SC PRN (12:59)
--- NOTE | 2017-10-28 14:24 | PRG ---
DATE OF SERVICE: 10/28/2017 SUBJECTIVE: Mr. Redmond is apparently going home today. Pathology is still not back. OBJECTIVE: VITAL SIGNS: Temperature 97.7, pulse 108, respirations 18, O2 sat was 87% on room air at rest, impro humaira to 92% on 2 liters at rest. HEENT: Unremarkable. The candidiasis is better. NECK: Without adenopathy or JVD. LUNGS: Clear. CARDIAC: S1 and S2 regular. ABDOMEN: Soft. EXTREMITIES: No edema. ASSESSMENT: 1. Left upper lobe lung mass. 2. Hypoxia, probably secondary to underlying chronic obstructive pulmonary disease and partial atele ctasis of his lung for cancer. PLAN: 1. Home O2 2 liters nasal cannula 24 hours daily. 2. We will call the patient as soon as we get results back from his biopsy.
[2017-10-28 14:52] VITALS: BP 149/77; TEMP 97.3
--- NOTE | 2017-10-28 18:50 | DIS ---
DATE OF ADMISSION: 10/25/2017 DATE OF DISCHARGE: 10/28/2017 ADMITTING DIAGNOSES: Left lung mass with metastatic appearing lesions in the liver and thoracic spin e, ascites from nonalcoholic steatorrhea cirrhosis, type 2 diabetes, oral candidal esophagitis, recen t disseminated BCG infection as treatment for transitional cell bladder cancer, history of hypertensi on, and hyperlipidemia. DISCHARGE DIAGNOSES: Left upper lobe lung mass, etiology still not defined with presumed metastatic lesions in liver and thoracic spine, ascites associated from nonalcoholic steatorrhea cirrhosis, stat us post transitional cell bladder cancer treated with disseminated BCG infection, type 2 diabetes, a dysphonia and odynophagia from candidal esophagitis. CONSULTATIONS: Pulmonology and Gastroenterology and Infectious Disease, Dr. Gerardo. HOSPITAL COURSE: The patient is a 67-year-old male patient of Dr. Rell Barba who had bee n treated by Urology and Dr. Gerardo, Infectious Disease, for bladder transitional cell cancer with BCG disseminated infection. Dr. Gerardo had seen him in the clinic as well as in the hospital over at the [facility] and he was getting the BCG treatments at [facility]. He then go t a disseminated infection from that and was being treated with multiple anti-tuberculin meds includi [facility]. During this time had noted the left upper lobe lung mass, but workup was being delayed due to the infection he was going through. He responded after adjusting the medications for treating the BCG infection, but the workup was being delayed diff per the patient's input trouble getting thi ngs done, so he came to Dr. Barba's office. When he was there, Dr. Barba put him here in the [facility] due to weakness and dysphonia and odynophagia. Upon arriving here, the left upper lobe mass was once again identified and he had significant ascites in his abdomen. GI was consulted as well as Pul monology and he underwent paracentesis where they took off 5-1/2 liters of ascitic fluid and the osmany ent reported almost immediate relief and breathing. He underwent bronchial washings and a bronchosco py. The results of all those pathological specimens is still pending at this time. On the day of kenyatta vargas, the patient is weak. Throat is still sore, but the Magic mouthwash with viscous lidocaine h e definitely can tell that helps. He is willing to go home and he will have close followup with Pulm onology for him to have close followup so he can get the results of his testing as soon as possible. Plan is for patient to go home. He will continue his Diflucan for another week. He will have some Magic mouthwash with viscous lidocaine. He will go back on his home medicines and he will follow up with Dr. Bush, Pulmonology in 2-[address] Barba in [address] Gerardo in about 2 weeks .
--- NOTE | 2017-10-29 14:53 | PRG ---
DATE OF SERVICE: 10/26/2017 SUBJECTIVE: Mr. Redmond had a bronchoscopy with mass which was friable and bleeding. PHYSICAL EXAMINATION: GENERAL: He is awake. He is feeling okay at this time, although is somewhat depressed. HEENT: Ocular movements conjugate. LUNGS: With symmetric air entry. HEART: S1, S2 with regular rate. ABDOMEN: Soft, nontender. EXTREMITIES: His is able to move all extremities. NEUROLOGIC: He is awake, oriented. He follows commands. LABORATORY DATA: White cell count 3.8, hemoglobin 13.4, platelets 175. Sodium 137, creatinine 1.18, bilirubin 1.8, AST 45, ALT 19, alkaline phosphatase 233, albumin 3.0. Biopsies are pending and microbiology workup pending from the bronchoscopy. ASSESSMENT AND DISCUSSION: 1. Bladder cancer, BCG therapy with disseminated BCG infection with improvement after treatment now currently on Rocephin, INH and ethambutol therapy. 2. Lung mass, left upper lobe, appeared to be a malignancy with pending pathology. 3. Liver cirrhosis and liver lesions, which could represent either granulomatous changes from the disseminated BCG infection or metastatic malignancy. Patient to resume his BCG treatments with rifampin, INH and ethambutol, consultation with Oncology. [facility]
--- NOTE | 2017-10-29 15:28 | ADD-DIS ---
ADDENDUM Need to add on the diagnosis of hypoxia and then the plan is to provide him some home oxygen.
[2017-10-30 10:26] LABS: Fungus Stain Final report (.)
== END 2017-10-28 15:00 | disposition home or self-care (01) | DRG 167 ==
LOC: ERS 16:50 → 2SW 18:26 → OBSVTOIN 10-25 16:46 → T4-B 10-25 19:49
PROVIDERS: ADMIT Family Medicine; ATTEND Family Medicine
PROC: 0W9G3ZZ Drainage of Peritoneal Cavity, Percutaneous Approach (ICD-10-PCS; 2017-10-25)
PROC: 0BBG8ZX Excision of Left Upper Lung Lobe, Via Natural or Artificial Opening Endoscopic, Diagnostic (ICD-10-PCS; principal; 2017-10-26)
DX: C34.12 Malignant neoplasm of upper lobe, left bronchus or lung (principal); C78.7 Secondary malignant neoplasm of liver and intrahepatic bile duct; R18.8 Other ascites; B37.81 Candidal esophagitis; C79.51 Secondary malignant neoplasm of bone; B37.0 Candidal stomatitis; J98.11 Atelectasis; E86.0 Dehydration; Z85.51 Personal history of malignant neoplasm of bladder; R09.02 Hypoxemia; J44.9 Chronic obstructive pulmonary disease, unspecified; I10 Essential (primary) hypertension; E11.9 Type 2 diabetes mellitus without complications; E78.5 Hyperlipidemia, unspecified; K74.60 Unspecified cirrhosis of liver; T50.A95 Adverse effect of other bacterial vaccines; K75.81 Nonalcoholic steatohepatitis (NASH); G47.33 Obstructive sleep apnea (adult) (pediatric); Z87.891 Personal history of nicotine dependence; Z87.11 Personal history of peptic ulcer disease; Z85.828 Personal history of other malignant neoplasm of skin; Z79.82 Long term (current) use of aspirin
CPT/HCPCS: 36415; 36416; 49083; 71046; 71260; 76000; 80053; 82550; 85025; 85610; 85730; 87070; 87102; 87116; 87205; 87206; 88104; 88112; 88305; 88313; 94640; 96360; 96361; A4216; J1100; J1450; J1650; J2001; J2250; J2405; J2704; J3010; J7611; J7620

== ENCOUNTER 2017-11-08 12:05 | Day surgery (SDC) | payer MEDICARE ==
[2017-11-07 17:24] VITALS: BMI 32.5
[~2017-11-08 12:05] MED LIST changes: -Gadobenate Dimeglumine 529 MG/1 ML (20ML VIAL) ONE; +Glycopyrrolate 0.2 MG/ML 5 ML SYRINGE ONE; +Lidocaine 1% PF 5 ML VIAL ONE; +Ondansetron HCl/PF 4 MG/2 ML Vial ONE; +PHENYLEPHRINE-NS 100 MCG/ML 10 ML SYRINGE ONE; +PROPOFOL 200 MG/20 ML VIAL ONE
[2017-11-08] MEDS ORDERED: Fentanyl 100 MCG/2 ML VIAL ONE ×2 (13:06→15:00)
[2017-11-08] MEDS ORDERED: PROPOFOL 40 ML ONE (13:15)
[2017-11-08 13:30] LABS: Hemoglobin 14.4 g/dL (14.0-18.0)
[2017-11-08 13:45] LABS: Anion Gap 19 mmol/L (10-20); BUN (Urea Nitrogen) 33 mg/dL (8.4-25.7); Calc. Creatinine Clearance 90 mL/min (70-130); Calcium 8.5 mg/dL (7.8-10.44); Carbon Dioxide 16 mmol/L (23-31); Chloride 107 mmol/L (98-107); Estimated GFR-MDRD 58; Glucose 145 mg/dL (80-115); Potassium 5.5 mmol/L (3.5-5.1); Sodium 136 mmol/L (136-145)
[2017-11-08] MEDS ORDERED: Hydrocodone-Acetamin 15 ML UDCUP ONE (15:24)
--- NOTE | 2017-11-09 15:15 | EKG ---
Test Reason : PREOP Blood Pressure : / mmHG Vent. Rate : 089 BPM Atrial Rate : 089 BPM P-R Int : 246 ms QRS Dur : 088 ms QT Int : 378 ms P-R-T Axes : 058 079 039 degrees QTc Int : 459 ms Sinus rhythm with 1st degree A-V block Otherwise normal ECG When compared with ECG of 27-FEB-2007 07:27, IN interval has increased Confirmed by DONNA VALE, DAYTON ([id number]) on 11/09/2017 3:15:37 PM Referred By: AMIE Confirmed By:DAYTON THOMPSON MD
--- NOTE | 2017-11-09 15:17 | OP ---
DATE OF PROCEDURE: 11/16/2017 SURGEON: Dr. Gerhard Arndt PREOPERATIVE DIAGNOSES: 1. Left acute vocal cord paralysis. 2. Aspiration. POSTOPERATIVE DIAGNOSES: 1. Left acute vocal cord paralysis. 2. Aspiration. PROCEDURE PERFORMED: Microsuspension laryngoscopy with left vocal cord injection using Prolaryn gel. PROCEDURE IN DETAIL: After consent was obtained, the patient was identified, brought to the operatin g room and placed on the table in supine position. General endotracheal anesthesia was obtained with the Lui jet ventilating endotracheal tube and the patient was positioned for laryngoscopy. Lar yngoscope was suspended from the operating table and the larynx was exposed under microscopic visuali zation. We injected lateral to the true cord and medialize the affected cord while not compromising the airway. This was done with a Prolaryn gel. The patient was then awakened, extubated, and taken to recovery room where he remained in stable condition prior to discharge home.
== END 2017-11-08 15:50 | disposition home or self-care (01) ==
LOC: SDC 12:05
PROVIDERS: ATTEND Specialist
PROC: 3E0F8GC Introduction of Other Therapeutic Substance into Respiratory Tract, Via Natural or Artificial Opening Endoscopic (ICD-10-PCS; principal; 2017-11-08)
DX: J38.01 Paralysis of vocal cords and larynx, unilateral (principal); I10 Essential (primary) hypertension; E11.9 Type 2 diabetes mellitus without complications; E78.5 Hyperlipidemia, unspecified; G47.30 Sleep apnea, unspecified; M19.90 Unspecified osteoarthritis, unspecified site; J34.89 Other specified disorders of nose and nasal sinuses; N52.9 Male erectile dysfunction, unspecified; Z87.891 Personal history of nicotine dependence; Z79.82 Long term (current) use of aspirin; Z79.52 Long term (current) use of systemic steroids; Z79.899 Other long term (current) drug therapy; Z79.4 Long term (current) use of insulin; Z98.890 Other specified postprocedural states
CPT/HCPCS: 80048; 85014; 85018; 93005; 93010; 96374; J2001; J2405; J2704; J3010

== ENCOUNTER 2017-12-03 12:49 | Outpatient (CLI) | payer MEDICARE ==
--- NOTE | 2017-12-03 16:44 | MRI ---
MRI BRAIN WITH AND WITHOUT CONTRAST: HISTORY: Liver cancer. Headache. Evaluate for metastases. COMPARISON: None. TECHNIQUE: A brain MRI is performed with and without intravenous Gadolinium administration. Multisequential, mu ltiplanar imaging is performed. FINDINGS: No hemorrhage on the axial gradient echo sequence. Appropriate calvarial marrow signal intensity. T 2 and FLAIR white matter hyperintensities due to chronic small vessel ischemic changes. Midline brain parenchymal structures are unremarkable. Cortical black white matter differentiation is preserved. The ventricles and sulci are patent and sym metric. The central arterial flow voids are maintained. Absent restricted diffusion. No pathologic enhancement of the brain parenchyma. IMPRESSION: 1. No pathologic enhancement of the brain parenchyma. 2. Absent restricted diffusion. No acute infarct. 3. Chronic small vessel ischemic changes of the white matter. POS: [facility]
== END 2017-12-03 12:50 | disposition home or self-care (01) ==
LOC: SCSMRI 12:49
PROVIDERS: ATTEND Internal Medicine Infectious Disease
DX: C22.9 Malignant neoplasm of liver, not specified as primary or secondary (principal); R51 Headache
CPT/HCPCS: 70553

== ENCOUNTER 2017-12-04 10:51 | Outpatient (CLI) | payer MEDICARE ==
--- NOTE | 2017-12-04 15:34 | PET ---
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 Evaluate for additional sites of possible primary tumor location. TECHNIQUE: Multiple PET CT images were obtained following administration of 12.4 millicuries of F18-FDG IV. The CT images were obtained for attenuation correction purposes only. Comparisons are made with CT of the thorax dated 10/25/17 and MR of the abdomen with and without contra st dated 10/16/17. FINDINGS: BIODISTRIBUTION: Biodistribution for the examination appears acceptable. HEAD AND NECK: No hypermetabolic lymphadenopathy or soft tissue mass is demonstrated within the head and neck region . THORAX: There is a large hypermetabolic suprahilar mass with mediastinal invasion measuring 7.9 x 5.78 cm. Th e peak SUV uptake is 4.14 and the mean uptake is 3.46 associated with this mass lesion. The mass lesi on extends into the left suprahilar region of the left lung. There is some subsegmental volume loss d istal to the lesion within the left upper lobe. There is severe bilateral COPD change. No definite hy permetabolic pathologic lymph nodes are evident within the mediastinum. No additional hypermetabolic pulmonary nodules are evident. No hypermetabolic lymphadenopathy is seen within the axillary regions. ABDOMEN AND PELVIS: There are numerous hypermetabolic hypodense lesions involving the liver when in comparison to the lonnie or MR examination is most consistent with worsening metastatic disease of the liver. There is moderate ascites. There is no overt hypermetabolic activity involving the ascitic fluid or o ther peritoneum. Some mild background activity involving the liver, kidneys, and colon. There is a fo cus of hypermetabolic activity seen at the level of the anus with a peak SUV uptake of 5.4 and a mean uptake of 4.28. No hypermetabolic lymphadenopathy is evident. OSSEOUS STRUCTURES AND SKIN: There are numerous hypermetabolic lesions involving the osseous structures most consistent with osseo us metastatic disease. This corresponds to multiple small sclerotic lesions on CT. Most prominent is a sclerotic lesion within the left lateral aspect of the T10 vertebral body measuring approximately 3 .5 cm. The peak uptake associated with this lesion is 2.7 and the mean uptake of 2.5. There is more o bvious hypermetabolic lesion seen within posterior aspect of the C2 vertebral base. There is a focal sclerotic hypermetabolic lesion involving the right humeral head. Multiple small hypermetabolic lesio ns are suspected within the ribs. IMPRESSION: Abnormal PET CT 1. There is a focus of hypermetabolic activity seen at the region of the anus. This could be rel ated to inflammatory change at the level of the anus or possibly a focal anal lesion. Recommend corre lation with the clinical exam. This may be site for the primary tumor. 2. Large hypermetabolic suprahilar mass with extension into the left aspect of the mediastinum m ay reflect primary malignancy versus metastatic disease. 3. Worsening hypermetabolic metastatic disease of the liver. 4. Hypermetabolic metastatic disease of the osseous structures, particularly of the spine and pr oximal right humerus as well as the ribs. 5. Moderate ascites. 6. Emphysema. 1. POS: [facility]
== END 2017-12-04 10:52 | disposition home or self-care (01) ==
LOC: PET 10:51
PROVIDERS: ATTEND Internal Medicine Hematology & Oncology
DX: C80.0 Disseminated malignant neoplasm, unspecified (principal); C78.7 Secondary malignant neoplasm of liver and intrahepatic bile duct; R91.8 Other nonspecific abnormal finding of lung field; R18.8 Other ascites; J43.9 Emphysema, unspecified; C79.51 Secondary malignant neoplasm of bone
CPT/HCPCS: 78815; A9552

== ENCOUNTER 2017-12-20 09:13 | Outpatient (CLI) | payer MEDICARE ==
--- NOTE | 2017-12-20 12:16 | RAD ---
CONTRAST SWALLOW ESOPHAGRAM SINGLE COLUMN: DATE: 12/20/2017. HISTORY: A 67-year-old male with dysphagia. TECHNIQUE: Because of patient's stated weakness, and inability to stand for long periods, this was performed as a limited study. The patient was given thin liquid barium to swallow through a straw while in the LP O position with the fluoroscopy table tilted 45 degrees reverse Trendelenburg. Barium tablet was giv en with water. The table was then tilted back to flat position, and the patient was turned to RPO po sition. FINDINGS: The esophagus has normal distensibility. The barium tablet passes rapidly into the stomach. There i s no moderate-sized or large hiatal hernia. No gastroesophageal reflux is visualized. IMPRESSION: No stricture. POS: [facility]
== END 2017-12-20 09:14 | disposition home or self-care (01) ==
LOC: RAD 09:13
PROVIDERS: ATTEND Internal Medicine Gastroenterology
DX: R13.10 Dysphagia, unspecified (principal); K74.60 Unspecified cirrhosis of liver; R91.8 Other nonspecific abnormal finding of lung field; R18.8 Other ascites
CPT/HCPCS: 74220

== ENCOUNTER 2017-12-24 16:58 | Outpatient (CLI) | payer MEDICARE ==
[2017-12-24 17:28] LABS: Hemoglobin 15.4 g/dL (14.0-18.0); Mean Corpuscular HGB CONC 33.1 g/dL (32.0-36.0); Mean Corpuscular Hemoglobin 35.2 pg (27.0-31.0); Mean Platelet Volume 7.5 fL (7.4-10.4); Platelet Count 132 thou/uL (130-400); RBC Distribution Width 14.3 % (11.5-14.5); Red Blood Cell (RBC) Count 4.37 mill/uL (4.70-6.10)
[2017-12-24 17:51] LABS: ALT (SGPT) 35 U/L (8-55); AST (SGOT) 68 U/L (5-34); Albumin 2.6 g/dL (3.4-4.8); Alkaline Phosphatase 330 U/L (40-150); Anion Gap 15 mmol/L (10-20); BUN (Urea Nitrogen) 47 mg/dL (8.4-25.7); Calc. Creatinine Clearance 0 mL/min (70-130); Calcium 8.9 mg/dL (7.8-10.44); Carbon Dioxide 18 mmol/L (23-31); Chloride 99 mmol/L (98-107); Estimated GFR-MDRD 35; Globulin 3.8 g/dL (2.4-3.5); Glucose 197 mg/dL (80-115); Potassium 5.3 mmol/L (3.5-5.1); Protein, Total 6.4 g/dL (5.8-8.1); Sodium 127 mmol/L (136-145)
[2017-12-24 18:20] LABS: Band 1 % (5-11); Lymphocytes 14 % (21-51); MDiff Complete? YES; Macrocytosis SLIGHT = 6-15 cells (100X) (0-5/hpf); Monocytes 11 % (0-10); Neutrophil 73 % (42-75); PLT Morphology Comment Appears Adequate; Reactive Lymphocytes 1 % (0-10)
== END 2017-12-24 16:59 | disposition home or self-care (01) ==
LOC: LABBT 16:58
PROVIDERS: ATTEND Surgery
DX: Z01.818 Encounter for other preprocedural examination (principal); R19.8 Other specified symptoms and signs involving the digestive system and abdomen
CPT/HCPCS: 80053; 85025; 93005; 93010

== ENCOUNTER 2017-12-26 12:15 | Inpatient (IN) | payer MEDICARE ==
[2017-12-26 13:49] LABS: INR-International Normal Ratio 1.3; Prothrombin Time 16.3 SEC (12.0-14.7)
[2017-12-26] MEDS ORDERED: LIDOCAINE HCL 4% Topical Sol (4 ML SOLN.PK.G.) ONE (13:50)
[2017-12-26] MEDS ORDERED: cefOXitin 2 GM in Sodium Chloride 0.9% 100 ML IVPB SCH (14:00)
[2017-12-26 14:03] LABS: ALT (SGPT) 39 U/L (8-55); AST (SGOT) 99 U/L (5-34); Albumin 3.1 g/dL (3.4-4.8); Alkaline Phosphatase 334 U/L (40-150); Bilirubin, Direct 6.1 mg/dL (0.1-0.3); Bilirubin, Total 9.5 mg/dL (0.2-1.2); Protein, Total 7.4 g/dL (5.8-8.1)
[2017-12-26] MEDS ORDERED: cefOXitin 2 GM VIAL ONE (14:05)
[2017-12-26] MEDS ORDERED: Sodium Chloride 0.9% 100 ML ONE (14:05)
[2017-12-26] MEDS ORDERED: Fentanyl 100 MCG/2 ML VIAL ONE (14:48)
[2017-12-26] MEDS ORDERED: Ondansetron HCl/PF 4 MG/2 ML Vial IVP PRN ×2 (16:14→16:58)
[2017-12-26] MEDS ORDERED: Meperidine HCl/PF 25 MG/ML VIAL SLOW IVP PRN (16:14)
[2017-12-26] MEDS ORDERED: PACU-Morphine 4MG/ML VIAL SLOW IVP PRN (16:14)
[2017-12-26] MEDS ORDERED: HYDROmorphone 2 MG/ML VIAL SLOW IVP PRN (16:14)
[2017-12-26] MEDS ORDERED: Promethazine HCl 25 MG/ML VIAL SLOW IVP PRN (16:14)
[2017-12-26] MEDS ORDERED: Morphine Sulfate 2 MG/ML SYRINGE SLOW IVP PRN (16:14)
[2017-12-26] MEDS ORDERED: Promethazine HCl 25 MG/ML VIAL IM PRN (16:14)
[2017-12-26] MEDS ORDERED: Ondansetron ODT 4 MG TAB PO PRN (16:58)
[2017-12-26] MEDS ORDERED: Sodium Chloride 0.9% 1,000 ML IV SCH (17:15)
[2017-12-26] MEDS ORDERED: Lidocaine 1% PF 5 ML VIAL ONE (17:44)
[2017-12-26] MEDS ORDERED: PROPOFOL 200 MG/20 ML VIAL ONE (17:44)
[2017-12-26] MEDS ORDERED: PHENYLEPHRINE-NS 100 MCG/ML 10 ML SYRINGE ONE (17:44)
[2017-12-26] MEDS ORDERED: Succinylcholine Chloride 20 MG/ML 10 ml SYRINGE FS ONE (17:44)
[2017-12-26] MEDS ORDERED: Ondansetron HCl/PF 4 MG/2 ML Vial ONE (17:44)
[2017-12-26 17:46] LABS: ALT (SGPT) 35 U/L (8-55); AST (SGOT) 78 U/L (5-34); Albumin 2.8 g/dL (3.4-4.8); Alkaline Phosphatase 296 U/L (40-150); Anion Gap 17 mmol/L (10-20); BUN (Urea Nitrogen) 56 mg/dL (8.4-25.7); Bilirubin, Total 8.4 mg/dL (0.2-1.2); Calc. Creatinine Clearance 43 mL/min (70-130); Calcium 9.2 mg/dL (7.8-10.44); Carbon Dioxide 20 mmol/L (23-31); Chloride 98 mmol/L (98-107); Estimated GFR-MDRD 28; Globulin 3.7 g/dL (2.4-3.5); Glucose 152 mg/dL (80-115); Magnesium 2.1 mg/dL (1.6-2.6); Phosphorus 5.6 mg/dL (2.3-4.7); Potassium 6.1 mmol/L (3.5-5.1); Protein, Total 6.5 g/dL (5.8-8.1); Sodium 129 mmol/L (136-145)
[2017-12-26] MEDS ORDERED: Promethazine HCl 25 MG/ML VIAL ONE (17:48)
[2017-12-26 18:05] LABS: Band 6 % (5-11); Hemoglobin 15.1 g/dL (14.0-18.0); Lymphocytes 9 % (21-51); MDiff Complete? YES; Macrocytosis SLIGHT = 6-15 cells (100X) (0-5/hpf); Mean Corpuscular HGB CONC 32.4 g/dL (32.0-36.0); Mean Corpuscular Hemoglobin 34.7 pg (27.0-31.0); Mean Platelet Volume 7.3 fL (7.4-10.4); Monocytes 22 % (0-10); Neutrophil 63 % (42-75); PLT Morphology Comment Appears Adequate; Platelet Count 130 thou/uL (130-400); RBC Distribution Width 14.3 % (11.5-14.5); Red Blood Cell (RBC) Count 4.36 mill/uL (4.70-6.10); White Blood Cell (WBC) Count 4.2 thou/uL (4.8-10.8)
[2017-12-26 19:45] VITALS: BMI 27.7
[2017-12-26] MEDS ORDERED: OLANZapine 10 MG VIAL IM SCH (20:15)
--- NOTE | 2017-12-26 20:41 | OP ---
PREOPERATIVE DIAGNOSIS: Rule out rectal cancer. 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 He had a PET scan that lit up in his rectum and the lead embedded software engineer thought he felt a mass in the rectum. This was not palpable on my exam. PREOPERATIVE FINDINGS: He had an anterior fissure. He had grade II hemorrhoids. No external lesion s. No lesions of the canal. Normal mucosa of the rectum. PROCEDURE IN DETAIL: After informed consent was obtained, the patient already was under anesthesia f or an endobronchial biopsy. He was placed in the lithotomy position. He had undergone a mechanical bowel prep at home. The external anus was inspected carefully. He did have some grade II hemorrhoid s, they had smooth surfaces without irregularity. No palpable or visible abnormality seen. Then, th e bivalve anal retractor was inserted. The canal inspected. He had a chronic anal fissure anteriorl y with a small sentinel pile. The canal was free of any other lesions. The mucosa was inspected cir cumferentially. There was no irregularity to the rectal mucosa. No palpable masses. He did have an enlarged prostate anteriorly. The retractor removed. The patient tolerated the procedure well.
[2017-12-26] MEDS: Mirtazapine 15 MG Soltab PO SCH (20:54)
[2017-12-26] MEDS: Sodium Chloride 0.9% 1,000 ML IV SCH (20:55)
[2017-12-26] MEDS: Heparin 5,000 UNITS/ML VIAL SC SCH (20:55)
[2017-12-26] MEDS ORDERED: Sterile Water 10 ML VIAL FS SCH (21:15)
[2017-12-26 21:55] LABS: Anion Gap 22 mmol/L (10-20); BUN (Urea Nitrogen) 57 mg/dL (8.4-25.7); Calc. Creatinine Clearance 48 mL/min (70-130); Carbon Dioxide 12 mmol/L (23-31); Chloride 98 mmol/L (98-107); Estimated GFR-MDRD 32; Glucose 237 mg/dL (80-115); Potassium 5.6 mmol/L (3.5-5.1); Sodium 126 mmol/L (136-145)
[2017-12-26] MEDS ORDERED: Acetaminophen 325 MG TAB PO PRN (21:59)
[2017-12-26] MEDS ORDERED: Mag-Al 1200 mg/1200 mg/30 ML UDCUP PO PRN (21:59)
[2017-12-26] MEDS ORDERED: Bisacodyl 5 MG TAB PO PRN (21:59)
[2017-12-26] MEDS ORDERED: Docusate 100 MG CAP PO PRN (21:59)
[2017-12-26] MEDS ORDERED: traZODone HCl 50 MG TAB PO PRN (21:59)
[2017-12-26] MEDS ORDERED: Morphine 4 MG/ML VIAL SLOW IVP PRN (22:00)
[2017-12-26] MEDS ORDERED: Dextrose 5% in Water 1,000 ML IV PRN (22:02)
[2017-12-26] MEDS ORDERED: Dextrose 50% Abboject 50 ML SYRINGE SLOW IVP PRN (22:02)
[2017-12-26] MEDS: HumaLOG 300 UNITS/3 ML VIAL SC PRN (23:42)
--- NOTE | 2017-12-27 02:36 | HP ---
DATE OF SERVICE: 12/26/2017 PRIMARY CARE PHYSICIAN: Dr. Rell Barba. CHIEF COMPLAINT: Weakness, dehydration. HISTORY OF PRESENT ILLNESS: Patient underwent biopsy of left upper lobe mass with Dr. Thayer today via bronchoscopy under cooperative efforts for cancer evaluation. The patient had rectal mass evalua bandar by Dr. Kim under anesthesia. Pending reports to be signed off on at this point in time, regard ing a full procedure details. Per Dr. Kim's preliminary note, grade II hemorrhoids were found. No irregularities or palpable masses. No reports of biopsy taken. Verbally speaking with Dr. Thayer, multiple biopsies were taken from suspicious-looking area and left upper lobe lung mass. Patient wa s transitioned to the PACU. Laboratory work found the patient to be dehydrated and was transitioned to floor for rehydration and speaking with family members and the patient at bedside, patient has bee n diagnosed with bladder cancer approximately 2015, treated by Dr. Jones in [facility]. BCG B acillus Calmette-Rema was used as an immunotherapy for adjunct of cancer treatment of bladder. Pat ient underwent multiple cystoscopes with Dr. Jones. Planned treatment was maintenance BCG over the course until 2019; however, approximately in 07/2017, patient had syncopal episode with fever 101 pl us per documentation was transported by EMS to the [facility] where he was evalua bandar by Dr. Gerardo, Dr. Jones and Dr. Merritt, Pulmonology. 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 Berhane aguilar had prior biopsy of the lung area by Dr. Bush in 10/2017 that was inconclusive. Prior biop sy of the liver with Dr. Lewis in the last 6 months provided liver lesions were in fact squamous cell carcinoma with unknown primary. Establishing with Dr. Guy [facility], PET scan showed rec layton area light up which as above was not palpable or seen on exam under anesthesia today with Dr. Roxy hernandes. Patient has been undergoing paracentesis routinely now per patient's report as Dr. Lewis's record s are not currently available to review in our clinic system every other week at this point, 1 to 4 l iters removed. Prior cytology of this paracentesis fluid has not been found to be metastatic in natu re. Patient has been initiated on Lasix and spironolactone on an outpatient basis for ascites manage ment. Patient has been admitted for dehydration and sent to the emergency room for dehydration, now 3 times and approximately has many months only recently reestablished with Dr. Rell Barba around Ju ne of this year. Prior PCP believed to be Dr. Karel Blackwell of [facility] for the last 3 years, was prior patient of Dr. Rell Barba in 2014 and prior. Patient has been suffering from dysphagia, lack of appetite and lack of drinking proper fluid over the last 6 to 12 months. He is a type 2 diabetic previously controlled on NPH large doses of insulin and Victoza; however, he was discontinued follow ing findings of hypoglycemia secondary to decreased appetite. Speech evaluation with barium swallow on 12/20/2017 on an outpatient basis with [facility] found no stricture, had good swal low; however anecdotally was reported to have poor strength to sit up to complete full battery of perla tures and the liquid qualities. Barium; however, was not found to aspirate. No reflux was present. MRI of the brain ordered by Dr. Gerardo 11/2017 did not show any metastatic disease of the brain, smal l vessel disease was present. Prior anecdotal evidence of secondhand information potential seizure e pisode and coma with a hospitalization at [facility] in 2017; however, another this can be hilton borated given patient's family has been somewhat doctor shopping and inconsistent records throughout. There are reports of patient with hypothyroidism and past medical records, but no mention of any of check of thyroid or any thyroid medication. Patient underwent stress test and carotid Doppler with Dr. Gorman in 09/2017 with maintained ejection fraction greater than 60%. No abnormalities on stress . Carotids with no more than 50% stenosis in one side in preparation for surgical clearance for biop sy the patient underwent currently. Patient's family transitioned from Dr. Merritt after failed bi opsy attempt from the patient not stopping his aspirin and need for cardiac clearance to Dr. Thayer at [facility]. The patient's family transitioned from Dr. Jones after he left reportedly to take a new tenure at [employer] for Dr. Clemens [facility] who speak and following the patient's bladder cancer recommending surveillance cystoscopes currently given the fact the patient's maintenance BCG h as been discontinued following questions of possible disseminated disease as above under Dr. Gerardo' c are. The patient has been maintained on vitamin B6 50 mg, rifampin 300 mg, isoniazid 300 mg, ethambu russell 400 mg for treatment of VCUG. Patient's family have unrealistic expectations of patient's progno sis. They have no family discussion regarding feeding tubes, code status or patient's last wishes, a dvanced directive. The patient states he still thinks for himself makes his own medical decisions. He states when hospice and goals of care are brought up unless he has a prognosis of less than 3 silviano hs. He wishes everything to be done and wishes biopsies to be performed to better define treatment g oals and prognosis. Patient seems interested in PEG tube feeding again if his prognosis is life long er than 6 months. Patient has just recently established with Dr. Jon Metzger following family not t o liking care by Dr. Arndt. Dr. Jon Metzger is only recently evaluated the patient. Dr. Arndt bernal s removed nodule of vocal cords back in 2006 and injected Prolaryn injection on 10/2017 to attempt to mobilize paralyzed vocal cord; however, the patient's presentation is much more markedly apparent to be recurrent laryngeal nerve irritation or paralysis. Under prior skin exam 04/2017 to 05/2017, ski n biopsy found actinic keratoses and basal cell carcinoma of skin. No squamous cell carcinoma found on the skin. Patient reported to potentially have obstructive sleep apnea with potential CPAP erica e. Patient has variable history of GERD with treatment of PPI, although not reported to be taking Ne xium which he was on prior. Patient has reported diagnosis of COPD by Dr. Merritt on one of their scans at the [facility], started on Anoro Ellipta; however, is no longer taking t hat on transition to Dr. Thayer. No reports of wheezing or sputum production per patient at bedside . Patient states that he desires to be comfortable. He states he has depression, anxiety, and abdom en pain and difficulty swallowing. Patient and family state that the patient is only able to keep do wn largely liquids, has attempted bone broth but has thrown that. Anything was significant amount of calories or proteins, patient seems to have emesis with. Family also verbalizes desire to make him comfortable, but again do not want hospice at this point in time. PAST MEDICAL/SOCIAL/SURGICAL HISTORY: Includes no known drug allergies. FULL CODE. 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 Home medications per Dr. Raymundo Barba's list which is different than Dr. Gerardo' list and different than prior records with Corby Brunner in the [facility]. Currently, Ambien 10 mg, alprazolam 0.5 mg, furosemi de 40 mg, Conestoga 5 mg/325, spironolactone 100 mg, ethambutol 400 mg, Isoniazid 300 mg, pyridoxine 50 m g, rifampin 300 mg. The patient with prior circumcision eyelid surgery, vocal cord nodule removed. The patient drinks at least 3 beers per week. Quit tobacco use. Lives with spouse. FAMILY HISTORY: Lung cancer, coronary artery disease, leukemia, prostate cancer. PHYSICAL EXAMINATION: VITAL SIGNS: Temperature of 97.6, pulse of 99, respiratory rate of 20, oxygen saturation of 98% on r oom air, blood pressure 113/73. FORMAL REVIEW OF SYSTEMS: No fevers, no chills. Positive fatigue. Positive weight loss, no night s weats or diaphoresis, no vision changes, no sore throat. No cervical lymphadenopathy reported. No c hest pain, palpitations, shortness of breath, cough. Positive abdomen pain. Positive abdomen disten tion. Positive ascites. Positive nausea and vomiting. Positive heartburn. Positive diarrhea. No lower extremity edema, no headache. Positive insomnia. Positive depression, positive anxiety, posit alisia stressors. No hallucinations or suicidal ideations. Denies confusion. Positive hoarse voice. PHYSICAL EXAMINATION: GENERAL: Patient is alert and oriented, no acute distress. HEENT: Head normocephalic, atraumatic. Slight temporal wasting. Extraocular movements are intact. Slight yellow hue to sclera. Oral mucosa is dry. Cranial nerves II-XII grossly intact. Pupils are equal, round, and reactive to light and accommodate. NECK: Supple, nontender, no goiter. HEART: With holosystolic murmur. LUNGS: Clear to auscultation bilaterally. No rubs, wheezes, rhonchi or rales. ABDOMEN: Somewhat distended, positive fluid wave. Positive tenderness, without rebound or guarding. No formal CVA tenderness. EXTREMITIES: Lower extremities without cyanosis or edema. No pitting features present. Dorsalis pe dis pulses intact bilaterally. NEUROLOGIC: Patient is alert and oriented x3, no focal deficits. Speech is normal. Patient is over tly depressed. The patient with hoarse voice. 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 We will follow alpesh duff assume care from Dr. Thayer once the patient stabilized following the biopsy effort. Agree with consultation to Dr. Guy of Oncology Service for prognosis and goals of care as this is a main topic of direction for the patient at this point in time. No known radiation or chemotherapy for squamous cell carcinoma has been undertaken at this point in time to my knowledge; however, given difficult h istory to track both on the paper and verbally with both patient and patient's family and unrealistic expectations of treatment goals. It is hard to say if patient has had any treatment for squamous ce ll carcinoma, believed to be in fact finding phase awaiting pulmonary biopsy for treatment initiation . We would consider CT with contrast of sinuses. Followup on hemoglobin A1c last was less than 7 on an outpatient basis in August. Followup thyroid studies. Continue BCG treatment as outlined by Dr. Flores markham on an outpatient basis. Follow up ammonia level. Trend INR and for prognostic characteristics, continuation of evaluation of MELD and Child-Hill score, current MELD score 25, yielding approximate ly 20% mortality in 3 months. Child-Hill by current records and laboratory work available, 10 which just puts the patient in class C approximately 45% 1 year survival. Known to me given the patient's current risk factors either primary liver squamous cell carcinoma, rectal or metastatic disease, osmany ent with less than 2-year life expectancy. We will attempt to clarify with Dr. Guy's opinion of pr ognostic features long-term, but strictly given his level of ascites and liver function on cirrhosis scale, patient is consistent with less than 1-2 years of survival. We will discuss this with continu ed family talks. We will follow up with PT, OT, and speech ordered by Dr. Thayer. Given the patien t has three hospitalizations for dehydration and has some evidence of malnutrition, agree with ramirez Lewis for consideration of PEG tube placement. Again, at this point in time, patient's famil y and patient desired to proceed with life extending procedures including PEG tube if his life expect andrae is greater than 6 months. Patient still desires to be FULL CODE at this point in time. Regardi ng the patient's depression, we will start Remeron for his refractory insomnia to AMBIEN. We will ac utely start Zyprexa to aid in more rapid sleep and mood change. [facility] Rell Barba is out on vacation until next . Still feels the patient's family h as some behavior of doctor shopping but has had some detriment to patient's continuity of care as wel l as unrealistic expectations for goals of care and we will consult palliative team to help discuss t his with the patient as well.
[2017-12-27 04:26] LABS: INR-International Normal Ratio 1.4; Prothrombin Time 17.2 SEC (12.0-14.7)
[2017-12-27 04:52] LABS: Hemoglobin A1c 7.2 % (4.0-6.0)
[2017-12-27 04:57] LABS: Band 5 % (5-11); Hemoglobin 14.5 g/dL (14.0-18.0); Lymphocytes 11 % (21-51); MDiff Complete? YES; Mean Corpuscular HGB CONC 32.3 g/dL (32.0-36.0); Mean Corpuscular Hemoglobin 34.7 pg (27.0-31.0); Mean Platelet Volume 7.4 fL (7.4-10.4); Monocytes 14 % (0-10); Neutrophil 70 % (42-75); PLT Morphology Comment Appears Decreased; Platelet Count 116 thou/uL (130-400); RBC Distribution Width 14.2 % (11.5-14.5); Red Blood Cell (RBC) Count 4.17 mill/uL (4.70-6.10); White Blood Cell (WBC) Count 3.7 thou/uL (4.8-10.8)
[2017-12-27 05:26] LABS: Free T4 (Free Thyroxine) 0.81 ng/dL (0.70-1.48); Thyroid Stimulating Hormone 5.281 uIU/mL (0.35-4.94)
[2017-12-27 05:33] LABS: Cardiac Risk 13.8 (Less than 4.5); Magnesium 2.1 mg/dL (1.6-2.6); Phosphorus 4.3 mg/dL (2.3-4.7)
[2017-12-27] MEDS: Sodium Chloride 0.9% 1,000 ML IV SCH ×2 (05:48→17:02)
[2017-12-27] MEDS: HumaLOG 300 UNITS/3 ML VIAL SC PRN ×4 (05:49→21:58)
[2017-12-27] MEDS ORDERED: Levothyroxine Sodium 50 MCG TAB PO SCH (06:45)
[2017-12-27] MEDS: Ethambutol HCl 400 MG TAB PO SCH (07:08)
[2017-12-27] MEDS ORDERED: Hydrocortisone Acetate 25 MG Suppository PR PRN (07:37)
[2017-12-27] MEDS ORDERED: DESONIDE 0.05% TOP PRN (07:37)
[2017-12-27] MEDS ORDERED: Hydrocortisone 1% Cream 1.5 GM Packet TOP PRN (07:48)
--- NOTE | 2017-12-27 08:08 | ULT ---
SONOGRAM RIGHT UPPER QUADRANT: Date: 12/27/17 HISTORY: Right upper quadrant pain. Abnormal liver function tests. FINDINGS: Echogenic sludge is apparent within the gallbladder lumen. Gallbladder is incompletely distended with associated prominence of the wall. Small amount of free fluid is present throughout the upper abdome n. Liver is heterogeneous with a lobulated contour and it measures up to 16.7 cm. Common duct is 0.5 cm. Heterogeneity of the liver is consistent with extensive metastatic disease demonstrated on recent PET scan. IMPRESSION: 1. Heterogeneity of the nodular liver, consistent with extensive metastatic disease demonstrated on recent PET scan. Moderate ascites. 2. No evidence of acute biliary obstruction. 3. Biliary sludge is consistent with chronic gallbladder dyskinesis. POS: BETO
[2017-12-27] MEDS ORDERED: Sodium Bicarbonate 150 MEQ in Dextrose 5% in Water 1,000 ML IV SCH (08:45)
[2017-12-27] MEDS ORDERED: Rifampin 300 MG CAP PO SCH ×2 (09:00)
[2017-12-27] MEDS ORDERED: Ethambutol HCl 400 MG TAB PO SCH (09:00)
[2017-12-27] MEDS ORDERED: Hydrocortisone 1% Cream 30 GM TUBE TOP PRN (09:35)
[2017-12-27] MEDS: Isoniazid 100 MG TAB PO SCH (09:37)
[2017-12-27] MEDS: pyridOXINE 50 MG (B6) TAB PO SCH (09:38)
[2017-12-27] MEDS: Folic Acid 1 MG TAB PO SCH (09:38)
[2017-12-27] MEDS: Cyanocobalamin (Vitamin B-12) 1,000 MCG TAB PO SCH (09:38)
[2017-12-27 10:37] LABS: Lactic Acid 3.7 mmol/L (0.5-2.2)
[2017-12-27] MEDS: Heparin 5,000 UNITS/ML VIAL SC SCH ×3 (10:42→20:57)
[2017-12-27] MEDS: Rifampin 150 MG CAP PO SCH ×2 (10:43→21:57)
[2017-12-27 10:44] LABS: Anion Gap 16 mmol/L (10-20); BUN (Urea Nitrogen) 57 mg/dL (8.4-25.7); Calc. Creatinine Clearance 53 mL/min (70-130); Calcium 8.6 mg/dL (7.8-10.44); Carbon Dioxide 20 mmol/L (23-31); Chloride 98 mmol/L (98-107); Estimated GFR-MDRD 37; Glucose 291 mg/dL (80-115); Sodium 129 mmol/L (136-145)
[2017-12-27] MEDS: HYDROcodone/Acetaminophen 10/325 mg Tablet PO PRN ×2 (10:49→16:52)
--- NOTE | 2017-12-27 11:25 | CON ---
DATE OF CONSULTATION: 12/26/2017 SERVICE: Pulmonary Medicine. REASON FOR CONSULTATION: Biopsy of lung. HISTORY OF PRESENT ILLNESS: The patient is a 67-year-old white male. He presented from the outpatient setting in his usual state of health. This was an elective outpatient procedure. Before the procedure, the patient and his family suggested that actually things are going fairly well. He was not having any difficulty with breathing. We did the procedure and when I talked to the family immediately following the procedure, they indicated that in truth things were not going well. The patient had intractable pain, persistent dehydration, inability to keep p.o. or to eat because he gets choked up whenever he tries to swallow anything. Because of all these issues, the patient's family and the patient himself essentially demanded to be admitted to the hospital while an aggressive workup was initiated. Based on laboratories prior to the procedure, it was clear that the patient was significantly dehydrated. He had an acute kidney injury. As such, we put him in the hospital. He denies any specific fevers, chills or recent sputum production, nausea, vomiting or diarrhea. Otherwise, he was in his usual state of health. PAST MEDICAL HISTORY: 1. Type 2 diabetes mellitus. 2. Dyslipidemia. 3. History of bladder cancer. 4. Squamous cell carcinoma, widely metastatic, currently under investigation. 5. Disseminated BCG infection. 6. Obstructive sleep apnea. 7. Tobacco abuse. 8. Peptic ulcer disease. 9. History of basal cell carcinoma. 10. Erectile dysfunction. PAST SURGICAL HISTORY: 1. Bronchoscopy x2. 2. Endoscopic bronchial ultrasound. 3. Excision of vocal cord nodule in 2006. 4. Tonsillectomy. 5. Circumcision. 6. Eyelid surgery in 2013. 7. Excision of basal cell carcinoma from the face. 8. Injection of the left vocal cord for paralysis. SOCIAL HISTORY: Negative for any alcohol. He has a [id number] history of smoking, but quit in 2004. He has a remote history of heavy alcohol use. He denies any current tobacco, alcohol or illicit drug use. He has no exposure to chemicals, asbestos or tuberculosis. FAMILY HISTORY: Noncontributory. ALLERGIES: No known drug allergies. MEDICATIONS: List of inpatient medications were reviewed. No specific updates were made at this time. I have discontinued the IV fluids in favor of a bicarbonate drip. REVIEW OF SYSTEMS: General, head, ears, eyes, nose, throat, cardiovascular, respiratory, GI, , musculoskeletal, neurologic and skin is negative except as mentioned in the HPI. PHYSICAL EXAMINATION: VITAL SIGNS: Afebrile, pulse 98, blood pressure 103/68, respirations 20, saturation 96% on room air. GENERAL: The patient is awake and alert. No apparent distress. LUNGS: Decent air entry. Rhonchi. He has no prolonged expiratory phase. HEART: Normal rate. Regular. ABDOMEN: Soft, nontender, nondistended. Bowel sounds are positive. MUSCULOSKELETAL: No cyanosis or clubbing. There is no pitting in the bilateral lower extremities. SKIN: Tenting throughout. GENITOURINARY: No Liu. NEUROLOGIC: Grossly nonfocal. LABORATORY DATA: Sodium 126, potassium down trending to 5.6, creatinine down trending to 2.06, BUN 57, anion gap 22, bicarbonate 12 and down trending. Glucose 246. Liver function studies are significant for a total bilirubin of 8.4, alkaline phosphatase of 296. Most of this is direct. Lipid profile is unremarkable. Magnesium and phosphorus fall within normal limits. Ammonia level is normal, prealbumin is 5, and a TSH is minimally elevated at 5.2. WBC 3.7, but hemoglobin is normal at 14.5, and platelets are 116,000. His baseline hemoglobin is likely closer to 12-13. IMAGING: Ultrasound of the abdomen does not demonstrate any clear evidence of obstructive pathology in the liver. Multiple metastatic lesions are noted. Biliary sludge is consistent with chronic gallbladder dyskinesis. ASSESSMENT: 1. Severe dehydration. 2. Dysphagia secondary to likely recurrent laryngeal nerve damage. 3. Acute kidney injury. 4. Hyperkalemia. 5. Elevated bilirubin and alkaline phosphatase. DISCUSSION AND PLAN: I will get a stat lactate and repeat his basic metabolic profile to make certain that the sodium is not down trending. I will switch his fluids over from normal saline to bicarbonate for the next 24 hours. The creatinine is down trending. If the chemistry suggest that it is continuing to downtrend, we will just give things more time. If on the other hand, it is going up or staying stable, ultrasound of the kidneys will be entertained to make certain are not dealing with any obstructive pathology. Pulmonary Critical Care will continue to follow him intermittently during this hospital stay. 70 minutes have been devoted to this patient in various activities. I personally reviewed all imaging studies and laboratory data noted within this document. For fifty percent of this time, I was interacting with the patient at the bedside or coordinating care with the care team. For the remainder of the time I was immediately available to the patient in the hospital unit. GALA
--- NOTE | 2017-12-27 11:40 | PRG ---
DATE OF SERVICE: 12/27/2017 SERVICE: Pulmonary Medicine. INTERVAL HISTORY: The patient is doing fairly well from a respiratory standpoint. He feels much improved today. His strength is better. He has more energy about him. His family says that he looks much improved. He is working with Speech Pathology right now to see if we can find some consistencies that he can swallow. He is going to have modified barium swallow in the morning. Otherwise, there has been no interval change to his condition. PHYSICAL EXAMINATION: VITAL SIGNS: Afebrile, pulse 113, blood pressure 127/71, respirations 18, saturation 95% on room air. GENERAL: The patient is awake, alert, no apparent distress. LUNGS: Excellent air entry. There is no prolonged expiratory phase, wheezing, rhonchi, or crackles present. HEART: Normal rate, regular. ABDOMEN: Soft, nontender and nondistended. Bowel sounds are positive. MUSCULOSKELETAL: No cyanosis or clubbing. There is no pitting in the bilateral lower extremities. NEUROLOGIC: Grossly nonfocal. LABORATORY DATA: WBC 3.7, hemoglobin 14.5, platelets 116,000. INR 1.4. Creatinine 1.83, down trending, BUN 57, stable, sodium 129 and improving with chloride that is now in the normal range. Lactate is 3.7. Prealbumin 5.0. ASSESSMENT: 1. Severe dehydration. 2. Dysphagia, likely secondary to aversion to food from aspiration because of recurrent laryngeal nerve damage. 3. Acute kidney injury, improving. 4. Hyperkalemia, resolved. 5. Elevated bilirubin and alkaline phosphatase 6. Cirrhosis, advanced. 7. Severe protein calorie malnutrition. DISCUSSION AND PLAN: After this liter of fluid, we will switch him back to normal saline and run him at 100 an hour for the next 24 hours. He is working with Speech Pathology today. I will have modified barium swallow tomorrow. If the modified barium swallow was terrible, he is deciding what to do about whether or not to pursue a permanent feeding tube. We are awaiting for the pathology to resolve from his elective procedure. Pulmonary will continue to follow along for the time being. GALA
--- NOTE | 2017-12-27 11:40 | OP ---
DATE OF PROCEDURE: 12/26/2017 SERVICE: Pulmonary Medicine PROCEDURE: Fiberoptic bronchoscopy with: 1. Airway inspection. 2. Endoscopic bronchial ultrasound guided TBNA of left hilar mass. 3. Endobronchial biopsies of left hilar mass. 4. BAL from the left lung. PREOPERATIVE DIAGNOSIS: Left hilar mass. POST-PROCEDURE DIAGNOSIS: Left hilar mass. STAFF PHYSICIAN: Fabricio Thayer M.D. ANESTHESIA: Please refer to anesthesia documentation for a list of medications administered during this procedure. PREANESTHESIA ASSESSMENT: H&P had been performed. The patient's medications and allergies were reviewed. Informed consent was obtained after discussing the rationale, benefits, and risks of the procedure. Alternative options for sample collection were also discussed. DESCRIPTION OF PROCEDURE: The patient was positively identified with name and date of . The proposed procedure was verified. After induction with anesthesia, a curvilinear endoscopic bronchial ultrasound was introduced through the endotracheal tube and into the tracheobronchial tree. Limited airway inspection was performed. Ultrasound analysis did not demonstrate any significant lymphadenopathy along the trachea, or at Station 7. In the left main stem bronchus, there was clear evidence of a mass. It appeared mostly to be behind both the aorta, and the pulmonary artery. There was a small window through which multiple samples were taken. Rapid on-site pathologist suggested there was some atypical cells, but no firm diagnosis could be established. The bronchoscope was subsequently removed from the patient. We then switched over to a regular bronchoscope. Tracheobronchial tree inspection was carried out with clear identification of the right upper lobe, right middle lobe, right lower lobe, and left lower lobe. At the takeoff of the left upper lobe, there was a large mass with endobronchial disease causing extrinsic compression to the lower lobe. Multiple transbronchial biopsies were taken at this location. A BAL of the left upper lobe was obtained. Hemostasis was verified and the bronchoscope was subsequently removed from the patient. FINDINGS: 1. Large left upper lobe endobronchial mass completely obliterated the airway. No tools or devices could be passed distal to the stricture. This mass caused extrinsic compression on the lower lobe, all segments of the lower lobe were open and identified. The bronchoscope; however, could not pass into these segments. 2. Secretions were thick, but minimal.. 3. No other endobronchial disease was identified. SPECIMENS OBTAINED: 1. BAL and endobronchial biopsies for pathology. 2. Transbronchial needle aspiration of left hilar mass for pathology. COMPLICATIONS: None. ESTIMATED BLOOD LOSS: 5 mL. FLUOROSCOPY TIME: None. DISPOSITION: The patient will be admitted to the hospital per discussion noted in the consultation note of this date. GALA
--- NOTE | 2017-12-27 12:50 | CON ---
DATE OF CONSULTATION: 12/27/2017 REASON FOR CONSULTATION: Squamous cell carcinoma of unknown primary. HISTORY OF PRESENT ILLNESS: A 67-year-old male with cirrhosis and new diagnosis of poorly differentiated carcinoma with squamous differentiation found on metastatic lesions in the liver, admi tted to the hospital for evaluation of PET avid rectal lesion and lung mass. The patient was initial ly seen in October and had a biopsy of the liver 11/14/2017 showing undifferentiated carcinoma of the liver with squamous cell features. Multiple scattered liver lesions with the largest 6.2 cm and a 4 cm left hilar lung mass which was biopsied and did not show any evidence of cancer. PET scan showed that this lesion was avid along with a rectal lesion and so the patient was arranged to have the lung rebiopsied by Dr. Thayer and the rectal area assessed by Dr. Kim. The patient states he tolerate d the procedure well and feels okay. During the procedure, Dr. Kim did not visualize any evidence of any suspicious areas or masses in the anorectal area. Dr. Thayer was able to perform bronchoscop y and multiple biopsies of the suspicious area in the lung. The patient does complain of abdominal p ain that is not worse than normal and last had paracentesis of approximately 4.8 liters removed on . The patient also has shortness of breath, though he claims this is not worse than his baselin e. Of note, when I last saw the patient his Child-Hill score was C with a MELD of 18. The patient h as a very complicated history including bladder cancer treated with TURBT x3 and intravesicular BCG, which appears to have disseminated throughout his body and he is currently on treatment for this. Th e patient has lost about 70 pounds in the last few months and has abdominal pain and shortness of noel ath from recurrent ascites which has had a negative cytology test result. He receives paracenteses o nce a week with typical drainage of anywhere from 3-5 liters. The patient has a performance status o f 2-3 and may not be able to tolerate any treatment of his malignancy; however, this is unclear at th is time. The patient and his family are open to speaking with palliative care at this time. The pat ient states he is able to get up and walk to the bathroom and says he wants to try to sit in a chair and walk more today. REVIEW OF SYSTEMS: Ten point review of systems negative except as per HPI. PAST MEDICAL HISTORY: Squamous cell carcinoma of unknown primary, bladder cancer, diabetes, high cho lesterol, cirrhosis, disseminated BCG, sleep apnea, tobacco abuse, basal cell skin cancer. FAMILY HISTORY: Lung cancer, leukemia, and prostate cancer. SOCIAL HISTORY: Tobacco abuse, alcohol use a few times per week. Lives with spouse. PHYSICAL EXAMINATION: VITAL SIGNS: Temperature 97.9, pulse 102, respirations 16, satting 94% on room air, blood pressure 1 13/70. GENERAL: The patient is lying in bed in no acute distress, appears comfortable. HEENT: Normocephalic, atraumatic. Mild scleral icterus. NECK: Supple, nontender. CARDIAC: S1, S2. Regular rate and rhythm, 3/6 systolic ejection murmur. LUNGS: Clear to auscultation bilaterally. ABDOMEN: Mild distention and mild diffuse tenderness to palpation without guarding. EXTREMITIES: No peripheral edema. NEUROLOGIC: Cranial nerves II-XII grossly intact. PSYCHIATRIC: Awake, alert and oriented x3. LABORATORY DATA: White blood cells 3.7, hemoglobin 14.5, platelets 116. PT 17.2, INR 1.4, PTT 31. BUN 56, creatinine 2.32 on admission, currently 2.06, hemoglobin A1c 7.2, potassium 6.1 on admission down to 5.6, bilirubin 9.5, down to 8.4, direct bilirubin 6.1, AST 78, ALT 35, alkaline phosphatase 2 96. TSH 5.28, free T3 1.61. Free T4 0.81. ASSESSMENT AND PLAN: A 67-year-old male with squamous cell carcinoma of unknown primary wi th metastases in the liver and lung mass as a possible primary with end-stage cirrhosis complicated b y recurrent ascites and hyperbilirubinemia, hyperkalemia and FABRICIO on chronic kidney disease. The osmany ent has multiple comorbidities including end-stage cirrhosis with a MELD score of 18 when I saw him l ast month and a Child-Hill score of C with current MELD score of 25. He has recurrent ascites and re quires paracentesis once a week for relief. The patient has depression and trouble sleeping and has recently started an antidepressant and states he already feels better. The patient had pet avidity i n the anorectal region and after a scope by Dr. Kim no suspicious lesion was identified. The patie nt has a lung mass that was previously biopsied and was inconclusive, so was rebiopsied yesterday by Dr. Thayer and multiple biopsies were sent for pathology. If the biopsy does reveal a lung primary the patient may be a candidate for immunotherapy or chemotherapy; however, due to the patient's end-s tage cirrhosis he will unlikely be able to tolerate any of these treatments and hospice may be the be st course of action for him. I discussed these options with the patient and his family and they are understanding that treatment may not be possible. I advised them [facility] by Dr. Vargas, I believe they could help managing the patient's symptoms and possibly transitioning him to hospice if this is the right course of action. I will fo llow up with the patient once final pathology is back and at that time decide if any treatment would be of benefit. The patient and family understand that any treatment may worsen the patient's clinica l status due to his underlying liver disease and state that they would be agreeable to hospice if no treatment is possible. Thank you for this consult.
[2017-12-27] MEDS: OLANZapine 5 MG TAB PO SCH (20:58)
[2017-12-27] MEDS: Mirtazapine 15 MG Soltab PO SCH (20:58)
--- NOTE | 2017-12-27 21:18 | PRG ---
DATE OF SERVICE: 12/27/2017 HISTORY OF PRESENT ILLNESS: Patient has had the best sleep he has had as long as he can remember months with Remeron and Zyprexa last night. He does feel much more rested additionally with IV fluids and not as thirsty. He continues to have baseline abdominal pain with his ascites, however, does not report worsening abdominal pain. Denies any fevers or chills. Verbalizes understanding regarding poor prognosis of liver and intermediate teacher with one of patient's daughters came at bedside this morning. There are pending Dietary and Speech Pathology evaluations. PHYSICAL EXAMINATION: VITAL SIGNS: Temperature of 97.9, pulse of 102, respiratory rate of 16, oxygen saturation of 94% on room air, blood pressure 113/70. GENERAL: Patient is alert and oriented. Hoarse voice. HEENT: Head normocephalic, atraumatic. Temporal wasting is noted. Sclerae are jaundiced, not injected. Oral mucosa is moist. NECK: Supple. HEART: With pansystolic murmur, regular rhythm, not tachycardic this morning at time of exam. LUNGS: Clear to auscultation bilaterally. No rubs or wheezes. ABDOMEN: With positive fluid wave, generalized tenderness. No rebound or guarding present. EXTREMITIES: Lower extremities without cyanosis or edema. NEUROLOGIC: Patient is alert and oriented x3, no focal deficits regarding extremity strengths. Patient with hoarse voice as above. Patient remains with flat affect and overtly depressed mood. LABORATORY DATA: Sodium 129, potassium of 5.0, BUN of 57, creatinine of 1.83 down from admission 2.32, glucose of 291 to 173 range. Lactic acid of 3.7, calcium of 8.6, prealbumin of 5.0. Ultrasound of abdomen, moderate ascites, liver consistent with metastatic disease on recent PET scan reviewed by Radiology, biliary sludge with gallbladder dyskinesis present. No acute obstruction. No comment or any hydronephrosis. Pathology report from biopsies from bronchoscopy pending. ASSESSMENT AND PLAN: Metastatic squamous cell carcinoma of the liver, end- stage liver disease with ascites, diabetes type 2, failure to thrive secondary to cancer with dysphagia likely secondary to recurrent laryngeal insufficiency, hypothyroidism, hyponatremia, depression, protein malnutrition as above. Speech therapy will perform modified barium swallow tomorrow. Patient does have ability to swallow and bedside evaluation today. Dietary recommending increasing in live protein supplements to t.i.d. for proper protein intake. Physical therapy given the patient's likely outcomes recommending home with family support. Continue aid of walking stick or walker as able. Gait distance just shy of 200 feet or around 175 feet. Fluid management per Dr. Thayer resolved hyperkalemia, hyponatremia is stable. Sliding scale insulin for elevated blood glucose. We will look at titrating every 24 hours possible long-acting insulin reviewing Dr. Guy notations. Patient poor candidate for likely any treatment regarding his current cancer situation. We will finalize opinion once lung biopsies are back. Family appeared to be slightly more on board with palliative approach at this point in time. We will continue to follow along with goals of treatment with multidisciplinary care team. Awaiting consultation from Dr. Lewis regarding his liver disease. [facility]
--- NOTE | 2017-12-27 21:41 | CON ---
DATE OF CONSULTATION: 12/27/2017 GI INPATIENT CONSULTATION NOTE REQUESTING PHYSICIAN: Dr. Thayer. REASON FOR CONSULTATION: Dysphagia and elevated bilirubin. HISTORY OF PRESENT ILLNESS: Mina Redmond is a 67-year-old gentleman followed by my GI colleague, Dr. Francicso Lewis. Mr. Redmond has a history of nonalcoholic cirrhosis and refractory ascites. He has been ge tting once weekly large volume paracentesis arranged by Dr. Lewis. In recent months, the patient has also been diagnosed with diffuse metastatic disease. He has lesions in bone, liver and lung. He had biopsy of a liver mass in October which came back as poorly differentiated carcinoma with squamous di fferentiation. He had a bronchoscopy yesterday and was found to have a mass in the left upper lobe w larah was also biopsied by Dr. Thayer, pathology is pending on that. He has been evaluated by Onclalita mary. He is in the hospital for multiple symptoms at this point including some shortness of breath, co ntinued abdominal distention and also decreased oral intake secondary to dysphagia. In discussing th is with the patient, he relates that primarily he has just not been hungry because he has been in suc h pain and has been so depressed; however, the pain and depression are much better controlled with so me recent medication changes. He says today he has been able to eat quite well. He has been evaluat ed by speech pathology and finds that he does better if his liquids are thickened. Barium swallow is set for tomorrow. REVIEW OF SYSTEMS: Full review of systems including constitutional, head, eyes, ears, nose, throat, GI, , cardiovascular, respiratory, musculoskeletal, and neurologic systems is negative except as no bandar in HPI. PAST MEDICAL HISTORY: Metastatic squamous cell carcinoma of unknown primary bladder cancer, diabetes , hyperlipidemia, cirrhosis, nonalcoholic sleep apnea, tobacco abuse, basal cell cancer. FAMILY HISTORY: Positive for leukemia, lung cancer and prostate cancer. SOCIAL HISTORY: Positive for tobacco abuse, alcohol use a few times a week. He lives with his . MEDICATIONS: [place] p.r.n., vitamin B12, ethambutol, folic acid, insulin sliding scale, isoniazid, mi rtazapine, Protonix 40 mg daily, vitamin B6, rifampin. ALLERGIES: No known drug allergies. PHYSICAL EXAMINATION: VITAL SIGNS: Temperature 97.5, pulse 113, blood pressure 127/71, 95% oxygen saturation on room air. GENERAL: Chronically ill appearing 67-year-old man lying in bed comfortably, in no acute distress. SKIN: He is jaundiced, no rash visible or palpable. EYES: Mild scleral icterus. Extraocular movements intact. ENT: Mucous membranes moist, no oral lesions. LYMPH: No submandibular, supraclavicular lymphadenopathy. THYROID: Nontender to palpation. HEART: Regular rate and rhythm. LUNGS: Clear to auscultation bilaterally. ABDOMEN: Mild distention with ascites. Dull to percussion of the flanks, nontender to palpation thr oughout. EXTREMITIES: No peripheral edema. VESSELS: Radial pulses 2+ bilaterally. NEUROLOGICAL: Cranial nerves II-XII intact bilaterally. No focal deficits. LABORATORY STUDIES: Sodium 129, potassium 5.0, BUN 57, creatinine 1.83, glucose 291. Lactic acid 3. 7. Ammonia only 69. TSH is 5.28, total bilirubin 8.4, direct bilirubin 6.1, alkaline phosphatase 29 6, AST 78, ALT 35. Ammonia only 69. IMAGING STUDIES: Abdominal ultrasound from earlier today demonstrates nodular liver with extensive m etastatic disease, moderate ascites, biliary sludge, but normal common bile duct of 0.5 cm. ASSESSMENT AND PLAN: 1. Oropharyngeal dysphagia. The patient continues to work with Speech Pathology. He feels that his swallowing has improved and that his oral intake is going to be able to improve as well with better control of his pain and depression. I certainly hope this is the case. Evidently barium swallow is set for tomorrow. His symptoms do not sound consistent with esophageal dysphagia. I am very hopeful that the patient will be able to maintain oral intake. A PEG tube placement would be quite problema tic in the context of a refractory ascites with diffuse metastatic disease. 2. Elevated liver function tests, secondary to cirrhosis as well as a diffuse metastatic disease to the liver. 3. Metastatic squamous cell carcinoma. 4. Refractory ascites. 5. Cirrhosis, nonalcoholic. His cirrhosis and refractory ascites obviously complicates the situatio n. Note that on recent paracentesis fluid studies, there were no malignant cells identified. Javier r, he does obviously have diffuse metastatic squamous cell carcinoma. He should continue with his we ekly paracentesis as set up by Dr. Lewis. The interval elevation in bilirubin likely represents incre ased burden of metastatic liver disease, rather than slowly progressive hepatic failure. Note that a bdominal ultrasound demonstrates normal common bile duct, so there is no evidence of biliary obstruct ion at this time. I further discussed with the patient that prognosis would appear quite grim. We would defer to Oncjusto watkins recommendations once further pathology is back, regarding possible treatment options. He likely has metastatic squamous cell carcinoma of the lung. His functional status is not good, and he may no t be a candidate for any chemotherapy. Thank you for the consultation. Please call back anytime with questions or concerns.
[2017-12-28] MEDS ORDERED: Levothyroxine Sodium 50 MCG TAB PO SCH (06:00)
[2017-12-28] MEDS: Sodium Chloride 0.9% 1,000 ML IV SCH ×2 (07:01→13:36)
[2017-12-28] MEDS: pyridOXINE 50 MG (B6) TAB PO SCH (09:47)
[2017-12-28] MEDS: Rifampin 150 MG CAP PO SCH ×2 (09:47→21:14)
[2017-12-28] MEDS: Isoniazid 100 MG TAB PO SCH (09:47)
[2017-12-28] MEDS: Folic Acid 1 MG TAB PO SCH (09:47)
[2017-12-28] MEDS: Cyanocobalamin (Vitamin B-12) 1,000 MCG TAB PO SCH (09:47)
[2017-12-28 12:44] LABS: ALT (SGPT) 66 U/L (8-55); AST (SGOT) 194 U/L (5-34); Albumin 2.3 g/dL (3.4-4.8); Alkaline Phosphatase 289 U/L (40-150); Anion Gap 14 mmol/L (10-20); BUN (Urea Nitrogen) 54 mg/dL (8.4-25.7); Bilirubin, Total 6.5 mg/dL (0.2-1.2); Calc. Creatinine Clearance 56 mL/min (70-130); Calcium 8.4 mg/dL (7.8-10.44); Carbon Dioxide 24 mmol/L (23-31); Chloride 96 mmol/L (98-107); Estimated GFR-MDRD 39; Globulin 3.4 g/dL (2.4-3.5); Potassium 5.1 mmol/L (3.5-5.1); Protein, Total 5.7 g/dL (5.8-8.1)
[2017-12-28 12:52] LABS: Lactic Acid 2.1 mmol/L (0.5-2.2)
[2017-12-28] MEDS: HYDROcodone/Acetaminophen 10/325 mg Tablet PO PRN ×2 (13:05→21:12)
[2017-12-28] MEDS: Levothyroxine Sodium 75 MCG TAB PO SCH (13:37)
[2017-12-28] MEDS: Heparin 5,000 UNITS/ML VIAL SC SCH ×3 (13:40→21:06)
[2017-12-28] MEDS: HumaLOG 300 UNITS/3 ML VIAL SC PRN (14:54)
--- NOTE | 2017-12-28 15:00 | PQF ---
JOAQUIM PARKER JR RENATE POLO [id number] CLINICAL DOCUMENTATION IMPROVEMENT CLARIFICATION FORM: ICD-10 Updated PLEASE DO AN ADDENDUM TO THE PROGRESS NOTE WITH ANY DOCUMENTATION UPDATES OR ADDITIONS AND CARRY THROUGH TO DC SUMMARY. THANK YOU. Date: 12-28-17 ATTN: DR. POLO Please exercise your independent, professional judgment in responding to the clarification form. Clinical indicators are provided on the bottom of this form for your review Please check appropriate box(s): [ x] Protein Calorie Malnutrition: [ ] Mild [ ] Moderate [ x] Severe [ ] Other Malnutrition (please specify) __ [ ] Underweight without malnutrition [ ] Cachexia [ x ] Other diagnosis ____adult failure to thrive [ ] Unable to determine CLINICAL INDICATORS - SIGNS / SYMPTOMS / LABS BMI 27.7 12-27 (MELANI) TEMPORAL WASTING NOTED; MODERATE ASCITES; FAILURE TO THRIVE PROTEIN MALNUTRITION 12-27 DIETARY CONSULT: TEMPORAL MUSCLE WASTING % WEIGHT CHANGE: -10.6% in 2 weeks; -28.8% in 5 months RISK FACTORS 12-27 (CHERELLE): DYSPHAGIA SECONDARY TO LIKELY RECURRENT LARYNGEAL NERVE DAMAGE 12-27 (MIAH) SQUAMOUS CELL CARCINOMA OF UNKNOWN PRIMARY W/ METS TO LIVER AND LUNG MASS POSSIBLE PRIMARY. END STAGE CIRRHOSIS W/ RECURRENT ASCITES TREATMENT: 12-27 DIETARY CONSULT - RECOMMENDATIONS 1. Continue liberalized Regular diet to promote intake with modifications per CARBIDE OPERATOR; Heart Healty incl LoSodium/Consistent Carbohydrate diet would be appropriate mcfp 2. Recommend increase Ensure Enlive TID with modifications per CARBIDE OPERATOR: provides 1050 kcal and 60 g protein 3. Monitor Renal function 4. Provide Bowel regimen PRN 5. [place] patient/family wishes Moderate Malnutrition (in acute illness) Energy Intake: <75% of estimated energy requirement for > 7 days Weight Loss: 1-2%/1 week; 5%/ 1 month; 7.5%/3 months Other: mild body fat loss; mild muscle mass loss; mild fluid accumulation; Severe Malnutrition (in acute illness) Energy Intake: < 50% of estimated energy requirement for > 5 days Weight Loss: >1-2%/1 week; >5%/1 month; >7.5%/3 months Other: moderate body fat loss; moderate muscle mass loss; moderate- severe fluid accumulation; measurably reduced silo painter strength Moderate Malnutrition (in chronic illness) Energy Intake: <75% of estimated energy requirement for >1 month Weight Loss: 5%/1 month; 7.5%/3 months; 10%/6 months; 20%/1 year Other: mild body fat loss; mild muscle mass loss; mild fluid accumulation Severe Malnutrition (in chronic illness) Energy Intake: <75% of estimated energy requirement for >1 month Weight Loss: >5%/1 month; >7.5%/3 months; >10%/6 months; >20%/1 year Other: severe body fat loss; severe muscle mass loss; severe fluid accumulation ; measurably reduced silo painter strength THANK YOU, KAILEY (This form is maintained as a part of the permanent medical record) 2015 [employer], [employer]. All Rights Reserved Kailey Rodriguez RN, BS [email or web address]
[2017-12-28 15:04] LABS: Glucose 207 mg/dL (80-115); Sodium 129 mmol/L (136-145)
--- NOTE | 2017-12-28 15:30 | PRG ---
DATE OF SERVICE: 12/28/2017 SERVICE: Pulmonary Medicine. INTERVAL HISTORY: The patient is doing great from a respiratory standpoint. He is breathing comfortably. He is on room air. Otherwise, there has been no interval change to his condition. He had a rough night last night because of cramping and pain. Outside of that, he indicates being in his usual state of health. PHYSICAL EXAMINATION: VITAL SIGNS: Afebrile, pulse 105, blood pressure 103/64, respirations 20, saturation 94% on room air. GENERAL: The patient is awake, alert, no apparent distress. LUNGS: Decent air entry. Crackles are present dependently. There is no prolonged expiratory phase or wheezing appreciated. HEART: Normal rate, regular. ABDOMEN: Soft. Mild tenderness to palpation. It is distended, slightly. There is no rebound or guarding present. MUSCULOSKELETAL: No cyanosis or clubbing. There is no pitting in the bilateral lower extremities. NEUROLOGIC: Grossly nonfocal. LABORATORY DATA: Creatinine 1.75 and gently down trending, BUN 54. Basic metabolic profile is otherwise unremarkable. AST and ALT are up trending, alkaline phosphatase 289. Total bilirubin 6.5 and down trending. Lactate has cleared. IMAGING DATA: Abdominal ultrasound demonstrates heterogeneity of the liver. There is biliary sludge present. ASSESSMENT: 1. Severe dehydration. 2. Dysphagia, secondary to food aversion because of aspiration from recurrent laryngeal nerve damage. 3. Acute kidney injury, slowly improving. 4. Elevated bilirubin and alkaline phosphatase. 5. Cirrhosis, advanced. 6. Protein calorie malnutrition, severe. PLAN: Pathology is still pending. Pulmonary will continue to follow intermittently for the duration of the hospital stay. If he gets in any respiratory issues over the weekend, please give me a phone call. I will back off on his IV fluids ever so slightly as he is starting to get a little bit of edema. MTDD
--- NOTE | 2017-12-28 15:51 | RAD ---
MODIFIED BARIUM SWALLOW 12/28/17 HISTORY: Dysphagia. Feeding difficulties. FINDINGS/IMPRESSION: The exam is performed in conjunction with speech pathology with multiple consistencies. Video review is available and demonstrates early spill of contrast with all consistencies. Delay in initiation of swallowing. Some liquids spilled to the level of the piriform sinuses before swallowing initiated. With thin barium liquid, there was flash penetration that was immediately cleared by the patient. Good clearing upon swallowing. The esophagus below the level of the hypopharynx is not evaluated. Ple ase see separate detailed report from speech pathology. Fluoro time is 0.8 minutes. POS: BETO
[2017-12-28 18:37] LABS: Hemoglobin 13.9 g/dL (14.0-18.0); Lymphocytes 15 % (21-51); Manual Diff?? YES; Mean Corpuscular HGB CONC 31.1 g/dL (32.0-36.0); Mean Corpuscular Hemoglobin 33.7 pg (27.0-31.0); Mean Platelet Volume 7.8 fL (7.4-10.4); Monocytes 15 % (0-10); Neutrophil 70 % (42-75); Platelet Count 101 thou/uL (130-400); RBC Distribution Width 14.6 % (11.5-14.5); Red Blood Cell (RBC) Count 4.13 mill/uL (4.70-6.10); White Blood Cell (WBC) Count 4.4 thou/uL (4.8-10.8)
[2017-12-28 18:38] LABS: Macrocytosis SLIGHT = 6-15 cells (100X) (0-5/hpf); PLT Morphology Comment Appears Decreased
--- NOTE | 2017-12-28 19:04 | PRG ---
DATE OF SERVICE: 12/28/2017 SUBJECTIVE: Overall, patient feels better. He primarily complains having a right lower extremity cr amps. He denies any nausea or vomiting. Abdominal discomfort is better since paracentesis at [facility] 3 days ago. PHYSICAL EXAMINATION: VITAL SIGNS: Temperature is 97.4, blood pressure 103/64, pulse of 80. GENERAL: He is alert, conversant, in no distress. HEENT: Shows bilateral icteric sclerae. NECK: Supple. HEART: Normal S1, S2, regular rate and rhythm with 2/6 systolic murmur. CHEST: Shows breath sounds. ABDOMEN: Protuberant, but not tense. He has active bowel sounds. No tenderness, no distention. EXTREMITIES: Shows 1+ pretibial and pedal edema. LABORATORY DATA AND IMAGING DATA: Sodium 129, potassium 5.1, chloride 96, CO2 of 24, creatinine 1.75 , BUN of 54. Bilirubin 6.5, AST 194, ALT 66, alkaline phosphatase 289. Abdominal ultrasound perform ed yesterday showed nodular liver with diffuse heterogeneity in the parenchyma. CBD is 5 mm. ASSESSMENT: 1. 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 Extensive liver metastases a nd evidence of bony metastases. 2. Cirrhosis from RENE with refractory ascites. On outpatient scheduled weekly paracentesis for com fort. 3. Elevation of bilirubin and alkaline phosphatase and liver enzymes from intrahepatic biliary jose cystosis secondary to diffuse metastatic disease and liver cirrhosis. 4. Oropharyngeal dysphagia, likely from impairment of recurrent laryngeal nerve along with dysphonia . 5. No evidence of esophageal dysphagia with normal barium swallow with tablets last week. 6. Malnutrition. 7. Dehydration admission with prerenal azotemia. RECOMMENDATIONS: 1. Supportive care. 2. Regular diet with thickener for liquids. 3. Continue to hold off diuretics. Once discharged, we will reduce outpatient furosemide to 40 mg d aily and Aldactone 200 mg every day. May lessen the frequency of paracentesis for comfort depends on his reaccumulation rate. 4. Otherwise, no new GI recommendation for now. Dr. Atwood is on cover this weekend for GI, please c all if needed.
[2017-12-28] MEDS: Mirtazapine 15 MG Soltab PO SCH (21:06)
[2017-12-28] MEDS: OLANZapine 5 MG TAB PO SCH (21:06)
[2017-12-29] MEDS: Levothyroxine Sodium 75 MCG TAB PO SCH (05:49)
[2017-12-29 06:10] VITALS: TEMP 97.8
[2017-12-29 06:46] LABS: ALT (SGPT) 76 U/L (8-55); AST (SGOT) 163 U/L (5-34); Albumin 2.5 g/dL (3.4-4.8); Alkaline Phosphatase 309 U/L (40-150); Anion Gap 14 mmol/L (10-20); BUN (Urea Nitrogen) 56 mg/dL (8.4-25.7); Bilirubin, Total 7.7 mg/dL (0.2-1.2); Calc. Creatinine Clearance 61 mL/min (70-130); Calcium 8.8 mg/dL (7.8-10.44); Carbon Dioxide 21 mmol/L (23-31); Chloride 98 mmol/L (98-107); Estimated GFR-MDRD 43; Globulin 3.7 g/dL (2.4-3.5); Glucose 215 mg/dL (80-115); Potassium 5.3 mmol/L (3.5-5.1); Protein, Total 6.2 g/dL (5.8-8.1); Sodium 128 mmol/L (136-145)
[2017-12-29 06:55] LABS: Band 4 % (5-11); Hemoglobin 14.5 g/dL (14.0-18.0); Lymphocytes 17 % (21-51); MDiff Complete? YES; Macrocytosis SLIGHT = 6-15 cells (100X) (0-5/hpf); Mean Corpuscular HGB CONC 32.3 g/dL (32.0-36.0); Mean Corpuscular Hemoglobin 35.2 pg (27.0-31.0); Mean Platelet Volume 8.1 fL (7.4-10.4); Monocytes 16 % (0-10); Neutrophil 63 % (42-75); PLT Morphology Comment Appears Decreased; Platelet Count 101 thou/uL (130-400); RBC Distribution Width 14.7 % (11.5-14.5); Red Blood Cell (RBC) Count 4.13 mill/uL (4.70-6.10)
[2017-12-29 07:45] VITALS: BP 111/72
[2017-12-29] MEDS: Cyanocobalamin (Vitamin B-12) 1,000 MCG TAB PO SCH (09:48)
[2017-12-29] MEDS: Heparin 5,000 UNITS/ML VIAL SC SCH (09:49)
[2017-12-29] MEDS: Folic Acid 1 MG TAB PO SCH (09:49)
[2017-12-29] MEDS: pyridOXINE 50 MG (B6) TAB PO SCH (09:49)
[2017-12-29] MEDS: Rifampin 150 MG CAP PO SCH (09:50)
[2017-12-29] MEDS: Ethambutol HCl 400 MG TAB PO SCH (09:50)
[2017-12-29] MEDS: Isoniazid 100 MG TAB PO SCH (11:27)
--- NOTE | 2017-12-29 21:26 | DIS ---
DATE OF ADMISSION: 12/26/2017 DATE OF DISCHARGE: 12/29/2017 PRIMARY CARE PHYSICIAN: Dr. Rell Barba. CHIEF COMPLAINT: Weakness, dehydration. HISTORY OF PRESENT ILLNESS AND HOSPITAL COURSE: The patient underwent exam under anesthesia for rect al lesion, possibility with Dr. Kim, simultaneously with lung biopsy via bronchoscopy with Dr. Solis logan. HOSPITAL COURSE: This is after patient's longstanding valles with cancer. He was diagnosed with tra nsitional cell bladder cancer in 2015, started on immunotherapy with BCG injections IV. He was on ma intenance therapy, received possibly and had disseminated infection in 07/2017, seen by Dr. Gerardo at [facility] following patient's syncopal episode in ambulance transfer. The patie nt has been on quad therapy for BCG for 6 months due to stop antibiotics this coming week at 6 month kaycee. Etiology of lung lesion is suspected to likely be metastatic cancer, but could also be involve d with the patient's BCG infection as well as squamous cell cancer found to be of the liver on a hosp italization in July. At [facility], biopsy was proven to show metastatic squamous cell cancer. The patient's liver lesions have progressed and he has deteriorated rapidly regarding his liver function. The patient is now jaundiced and having paracentesis weekly under the preview of Dr. Lewis on an outpatient basis. Following the patient's bowel prep for the above rectal exam under anesthesia which yielded no biopsies and paracentesis every Sunday, patient was significantly deh ydrated. The patient was rehydrated with IV fluids, assessed for speech therapy evaluation for swall ow. The patient with recurrent laryngeal nerve injury. Liquids will now be thickened to help mainta in patient's oral intake and the patient will undergo supplemental calorie intake and Enlive Ensure t .i.d. Two out of three pathology report has been read out and is necrotic or blood clot tissue from biopsies, one pending. Patient's family verbalized understanding that following evaluation by [facility] given patient's progression of liver disease, he would not be a candidate for radiation therapy or adjunctive therapy, especially since no primary for squamous cell carcinoma has been found for any r esection or treatment. The patient and patient's family verbalized understanding regarding mortality rate of end-stage liver disease and decides to pursue palliative route at this point in time; fede chamberlain, I do not want to go on hospice yet. Still eager to see what can be done for his liver as able and verbalized understanding regarding his circumstance and not being able to be on liver transplant lis t, etc. given his unique circumstances. Consultations included Dr. Kim, Dr. Thayer, Dr. Guy of Oncology, Dr. Lewis, Gastroenterology with coverage with Dr. Zeng. PROCEDURES: Included ultrasound of abdomen. Barium speech swallow evaluation. DISCHARGE DIET: Regular with consideration for Coumadin like vitamin K. Precautions along with carb -controlled for patient's diabetes, t.i.d. Enlive Ensure shake supplementation, nectar thickened liqu ids, regular consistency solids with extra gravy and sauces. DISCHARGE ACTIVITY: As tolerated with cane or walker as patient's ambulatory status prior to admissi on. DISCHARGE CONDITION: Fair. The patient will likely need paracentesis on Sunday in advance of his no rmal schedule day on Sunday. Did have some mild shortness of breath associated with distention of the abdomen. However, last look Gastroenterology felt the patient would be stable over the weekend with reinitiation of his diuretics and move away from IV fluids. Regarding the patient's depression, Remeron was started along with adjunctive Zyprexa in the immediate period to help his sleep which he had refractory insomnia to Ambien. The patient will continue Remeron and follow up with Dr. Rell lund for medication management. P.r.n. Zyprexa was sent home with patient. The patient did receive some trazodone, which did make him too drowsy with triple therapy while inpatient, moving back to [facility]. We will backup Zyprexa at this point in time. DISCHARGE MEDICATIONS: Include Lasix 40 mg b.i.d., spironolactone 100 mg b.i.d., propose decrease by Gastroenterology to once daily on both diuretics to help prevent dehydration in the future, but give n overload we will continue b.i.d. until seen by Gastroenterology on Sunday to Sunday, vitamin B6 50 mg daily, vitamin B12, new medication 1000 mcg, folic acid 1 mg daily new medication, continuatio n of the patient's [place] 10 mg q.6 hours p.r.n. pain, restart the patient's prior insulin 70/30 split mix 10 units b.i.d., hold if glucose under 150. Reinitiation of patient's thyroid treatment with 75 mcg Synthroid daily, new medication of Remeron 30 mg at bedtime p.r.n., Zyprexa 5 mg for insomnia, r efractory to Remeron. DISCHARGE DIAGNOSES: Include, 1. Resolved acute kidney injury. 2. Resolved dehydration. 3. Metastatic squamous cell cancer including the liver and possibly lung. 4. 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 5. Dysphagia secondary to recurrent laryngeal nerve irritation and damage present on admission. DISCHARGE INSTRUCTIONS: The patient to follow up with Gastroenterology Sunday to Sunday as discus sed. Followup with patient's PCP, Dr. Rell Barba within the week. No further plans for biopsies w ere secondary to Pulmonology recommendations. We will follow up on pathology report once this is fin alized next week and likely given palliation efforts, no further follow up for rectal light up on PET scan. The patient is welcome to follow up with Oncology p.r.n. for further prognosis recommendation s although it appears he will succumb to complications of liver failure and best be served by Gastroe nterology followup.
--- NOTE | 2017-12-31 09:14 | PRG ---
DATE OF SERVICE: 12/28/2017 HISTORY OF PRESENT ILLNESS: The patient had another good night after taking Remeron and Zyprexa, and was continued on IV fluids for acute kidney injury and dehydration. Does report a bit of a chill to his arm; however, he feels more energy day by day since we are hydrating. Pending a swallow evaluat ion with speech therapy this afternoon. After speaking with the patient and the patient's family, th ey are optimistic. Likely laryngeal nerve irritation or damage, the patient will continue to have fu nctional swallow. Verbalized understanding regarding dehydration risks following bowel prep for exam with Dr. Kim and paracentesis with fluid shifts. We will monitor his fluid status on outpatient b asis. The patient has no new complaints. States that rectal irritation was well serviced by c willian. PHYSICAL EXAMINATION: VITAL SIGNS: Temperature 97.4, pulse of 105, respiratory rate of 20, oxygen saturation 94% on room a ir, blood pressure 103/64. GENERAL: The patient is alert and oriented, in no acute distress. HEENT: Normocephalic, atraumatic. Temporal wasting is present. Sclerae are jaundiced in appearance . Oral mucosa is moist. NECK: Supple. HEART: With systolic heart murmur. LUNGS: Clear to auscultation bilaterally. ABDOMEN: Distended but not taut, positive fluid wave, generalized tenderness without rebound or guar ding. EXTREMITIES: Lower extremities without cyanosis or edema. NEUROLOGIC: The patient is alert and oriented x3, no focal deficits. Speech is normal. The patient with a better outlook than yesterday, regarding mood, now with improved sleep. LABORATORY DATA: Sodium of 129; potassium of 5.1; CO2 of 24; BUN of 54; creatinine of 1.75, improved from 1.83; blood glucose is 199-311 range. In the last 12 hours, lactic acid improved to 2.1, total bilirubin improved to 6.5, AST of 194, ALT of 66, alkaline phosphatase of 289, albumin of 2.3. ASSESSMENT AND PLAN: End-stage liver disease; squamous cell carcinoma of the liver, unknown primary; hyponatremia; acute k idney injury; diabetes; hypothyroidism; BCG background disseminated infection present on admission an d nearing end of antibiotic course per Dr. Gerardo' outpatient note; depression; insomnia. Agree with Dr. Thayer's increase of levothyroxine to better adequately approach the patient's hypothyroidism wh ich was undertreated on an outpatient basis given current findings. Patient continued on IV fluids an d renally dosed BCG treatment with antibiotics and vitamin B6 replacing B12 and folic acid for macroc ytosis. Continuing Zyprexa and Remeron for depression and sleep. The patient increased to t.i.d. chappell pplementations per dietary recommendations. Review of speech therapy and barium swallow, the patient with only a flash penetration of the barium , which was properly cleared both into the sinuses and epiglottal region, normal formal aspiration pe r report. Current diet order is regular. Textured solids extra gravies or sauces, nectar thick liqu id by cup. No straws. Sit upright 30 minutes after meals. The patient and the patient's family mem benton at bedside verbalized understanding regarding likely no cancer treatment options. We will fully await Pulmonology and Oncology's recommendations following a pathology biopsy read finalization. The y verbalized understanding regarding the patient's end-stage liver disease and his mortality risk giv en these complications to his health regarding albumin production and INR worsening, Gastroenterology appropriately concerned about PEG tube placement and ascites fluctuation. The patient is already ge tting paracentesis weekly at this point. They desired to continue with more comfort approach with pa racentesis to maintain the patient's comfort and continuing on mood medications and verbalized unders tanding regarding dehydration risks following each paracentesis. Welcome nutritional efforts by peri hooker, verbalized understanding about potential discharge once rehydrated over the weekend here.
== END 2017-12-29 14:10 | disposition home or self-care (01) | DRG 180 ==
LOC: SDC 12:15 → EDSTATUS 17:01 → T4-B 17:14
PROVIDERS: ADMIT Internal Medicine; ATTEND Internal Medicine
PROC: 0BDG8ZX Extraction of Left Upper Lung Lobe, Via Natural or Artificial Opening Endoscopic, Diagnostic (ICD-10-PCS; principal; 2017-12-26)
PROC: 0B9G8ZX Drainage of Left Upper Lung Lobe, Via Natural or Artificial Opening Endoscopic, Diagnostic (ICD-10-PCS; 2017-12-26)
PROC: 0BB78ZX Excision of Left Main Bronchus, Via Natural or Artificial Opening Endoscopic, Diagnostic (ICD-10-PCS; 2017-12-26)
PROC: 0DJD8ZZ Inspection of Lower Intestinal Tract, Via Natural or Artificial Opening Endoscopic (ICD-10-PCS; 2017-12-26)
DX: C78.02 Secondary malignant neoplasm of left lung (principal); E43 Unspecified severe protein-calorie malnutrition; N17.9 Acute kidney failure, unspecified; C78.7 Secondary malignant neoplasm of liver and intrahepatic bile duct; R18.8 Other ascites; C79.51 Secondary malignant neoplasm of bone; E87.1 Hypo-osmolality and hyponatremia; K62.9 Disease of anus and rectum, unspecified; E86.0 Dehydration; Z51.5 Encounter for palliative care; T14.8XXA Other injury of unspecified body region, initial encounter; G47.09 Other insomnia; T42.6X5A Adverse effect of other antiepileptic and sedative-hypnotic drugs, initial encounter; K75.81 Nonalcoholic steatohepatitis (NASH); K72.90 Hepatic failure, unspecified without coma; I99.8 Other disorder of circulatory system; R13.12 Dysphagia, oropharyngeal phase; K74.60 Unspecified cirrhosis of liver; E11.9 Type 2 diabetes mellitus without complications; E78.5 Hyperlipidemia, unspecified; C80.1 Malignant (primary) neoplasm, unspecified; F32.9 Major depressive disorder, single episode, unspecified; Z85.828 Personal history of other malignant neoplasm of skin; E80.6 Other disorders of bilirubin metabolism; E87.5 Hyperkalemia; G47.33 Obstructive sleep apnea (adult) (pediatric); N52.9 Male erectile dysfunction, unspecified; K64.1 Second degree hemorrhoids; I10 Essential (primary) hypertension; M19.90 Unspecified osteoarthritis, unspecified site; R62.7 Adult failure to thrive; J44.9 Chronic obstructive pulmonary disease, unspecified; K27.9 Peptic ulcer, site unspecified, unspecified as acute or chronic, without hemorrhage or perforation; J38.00 Paralysis of vocal cords and larynx, unspecified; F41.9 Anxiety disorder, unspecified; K60.1 Chronic anal fissure; N40.0 Benign prostatic hyperplasia without lower urinary tract symptoms; E03.9 Hypothyroidism, unspecified; Z87.891 Personal history of nicotine dependence; Z01.818 Encounter for other preprocedural examination; R19.8 Other specified symptoms and signs involving the digestive system and abdomen
CPT/HCPCS: 36415; 36416; 74230; 76705; 80048; 80053; 80061; 80076; 82140; 83036; 83605; 83735; 84100; 84134; 84439; 84443; 84481; 85007; 85025; 85027; 85610; 85730; 88112; 88172; 88173; 88177; 88305; 88307; 88341; 88342; 93005; 93010; 94640; A4216; G8978-GP-CK; G8979-GP-CK; G8980-GP-CK; G8996-GN-CJ; G8997-GN-CI; G8997-GN-CJ; J0694; J1644; J2001; J2270; J2358; J2405; J2550; J2704; J3010; J7050; J7070; J7620

== ENCOUNTER 2018-01-06 18:02 | Inpatient (IN) | payer MEDICARE ==
[2018-01-06 18:29] LABS: Base Excess-Venous -8.6 mmol/L (0 (+/- 2.5)); Bicarbonate (HCO3v) 16.5 mmol/L (1.0-85.0); CO2 Tension (PvCO2) 33.7 mmHg (41.0-51.0); Calcium, Ionized 1.12 mmol/L (1.12-1.32); Hemoglobin - Calc 19.2 g/dL (12.0-18.0); Potassium 5.1 mmol/L (3.4-4.7); T. Carbon Dioxide 17.6 mmol/L (1.0-85.0); vO2 Saturation-calc 51.7 % (94-98)
[2018-01-06 18:37] LABS: Hemoglobin 15.9 g/dL (14.0-18.0); Mean Corpuscular HGB CONC 31.5 g/dL (32.0-36.0); Mean Corpuscular Hemoglobin 34.4 pg (27.0-31.0); Mean Platelet Volume 8.5 fL (7.4-10.4); Platelet Count 131 thou/uL (130-400); RBC Distribution Width 15.6 % (11.5-14.5); Red Blood Cell (RBC) Count 4.63 mill/uL (4.70-6.10); White Blood Cell (WBC) Count 10.5 thou/uL (4.8-10.8)
[2018-01-06 18:41] LABS: INR-International Normal Ratio 1.4; PTT 35.1 SEC (22.9-36.1); Prothrombin Time 16.8 SEC (12.0-14.7)
[2018-01-06 18:48] LABS: ALT (SGPT) 71 U/L (8-55); AST (SGOT) 121 U/L (5-34); Albumin 2.3 g/dL (3.4-4.8); Alkaline Phosphatase 428 U/L (40-150); Anion Gap 15 mmol/L (10-20); BUN (Urea Nitrogen) 73 mg/dL (8.4-25.7); Bilirubin, Total 8.1 mg/dL (0.2-1.2); Calc. Creatinine Clearance 0 mL/min (70-130); Carbon Dioxide 19 mmol/L (23-31); Chloride 102 mmol/L (98-107); Estimated GFR-MDRD 27; Globulin 3.7 g/dL (2.4-3.5); Glucose 116 mg/dL (80-115); Lipase 46 U/L (8-78); Potassium 5.3 mmol/L (3.5-5.1); Sodium 131 mmol/L (136-145)
[2018-01-06 18:49] LABS: D-Dimer Test 10.05 *mcg/mL (0.27-0.43)
[2018-01-06 18:51] LABS: Anisocytosis SLIGHT = 6-15 cells (100X) (0-5/hpf); Band 29 % (5-11); Lymphocytes 8 % (21-51); MDiff Complete? YES; Macrocytosis SLIGHT = 6-15 cells (100X) (0-5/hpf); Monocytes 6 % (0-10); Neutrophil 56 % (42-75); PLT Morphology Comment Appears Adequate; Reactive Lymphocytes 1 % (0-10); Toxic Granulation SLIGHT; Vacuoles SLIGHT
[2018-01-06] MEDS ORDERED: Cefepime 2 GM VIAL ONE (18:51)
[2018-01-06 18:58] LABS: Troponin I 0.062 ng/mL (< 0.028)
--- NOTE | 2018-01-06 19:01 | RAD ---
SINGLE VIEW CHEST: INDICATIONS: Dyspnea. COMPARISON: PET CT dated 12/04/2017. FINDINGS: There is a large left suprahilar mass seen on the prior PET CT, corresponding to either primary malig thi or metastatic disease. This is superimposed on chronic lung changes and underlying emphysema. No confluent air space opacity or pleural effusion is evident. No pneumothorax is demonstrated. IMPRESSION: 1. Large left suprahilar mass, as seen on PET CT, consistent with either primary malignancy or metas tatic disease. 2. Emphysematous change. POS: [facility]
--- NOTE | 2018-01-06 19:14 | CT ---
CT BRAIN WITHOUT CONTRAST: INDICATIONS: Dyspnea with confusion and shortness of breath. COMPARISON: Prior MRI brain dated 12/03/2017. FINDINGS: No acute infarct, hemorrhage, or hydrocephalus is present. There is stable mild chronic small vessel white matter ischemic change. The septum pellucidum and third ventricle are midline. The skull and extracranial soft tissues are within normal limits. IMPRESSION: No acute intracranial abnormality. POS: [facility]
[2018-01-06] MEDS ORDERED: Albumin 25% 25 GM/100 ML BOT IVPB SCH (19:46)
[2018-01-06] MEDS ORDERED: Sodium Chloride 0.9% 1,000 ML IV SCH (20:00)
[2018-01-06] MEDS ORDERED: Lidocaine 1% w/Epinephrine 1:100K 20 ML VIAL ONE (20:15)
[2018-01-06 20:54] LABS: BF Color Yellow; Body Fluid Source Ascites Body Fluid; Clarity Clear (Clear); RBC Background Count 0.005; Tube # EDTA; WBC Background Count 0.01
[2018-01-06 21:16] LABS: BF RBC Count - Manual 55 /cumm; BF WBC/Nonhematics Ct. - Manua 139 /cumm
--- NOTE | 2018-01-06 22:13 | HP ---
PRIMARY CARE PHYSICIAN: Dr. Rell Barba. CHIEF COMPLAINT: Shortness of breath and abdominal bloating. HISTORY OF PRESENT ILLNESS: Mr. Redmond is a 67-year-old male with likely metastatic transitional cell bladder cancer who has recently discharged from the hospital on 12/29/2017 after a 3-day stay. He bernal d rectal lesions biopsied. He had lung bronchoscopy biopsies. He came into the ER today due to shor tness of breath. In the emergency room, the ER doctor thought that the patient was tachypneic enough and distended enough that he needed to have a therapeutic tap. Evidently, the patient and the patie nt's family state that he gets a routine therapeutic paracentesis almost weekly due to his ascites. In discussions I had with Dr. Zeng, they do not do those at their office. He said they are likely do ne by Interventional Radiology. The ER physician contacted the [facility] and they ca me down to the ER and did the tap and pulled off about 4 liters. It was successful in helping the pa tient not being in respiratory irritation. Shortness of breath resolved, but he became severely hypo tensive and tachycardic with a pressure in the 70s systolic and tachycardic in the 115-120. At that point, it was necessary to put him in ICU or at least the IMCU. PAST MEDICAL HISTORY: Positive for metastatic squamous cell carcinoma of the bladder, trend diabetes , hyperlipidemia, hepatic cirrhosis nonalcoholic type, sleep apnea, tobacco addiction. FAMILY HISTORY: Positive for leukemia, lung cancer and prostate cancer. SOCIAL HISTORY: Tobacco abuse as stated. Alcohol use is rare. He lives at home with his . MEDICATIONS: He is on ethambutol, folic acid insulin sliding scale. He is on isoniazid, kimo zapine, Protonix, rifampin, vitamin B6, p.r.n. [place]. ALLERGIES: He has no known drug allergies. REVIEW OF SYSTEMS: Denies any fever, visual changes or headaches. Has had rigors and shortness of b reath with some chest tightness from the fluid in his abdomen, but no substernal chest pain. Denies any hemoptysis. Denies any vomiting or hematemesis. Some mild nausea that he does get before he get s his paracentesis. Denies any bowel or bladder changes. Denies any paresis or paresthesias. No id eations or hallucinations. PHYSICAL EXAMINATION: VITAL SIGNS: He is afebrile, pulse in the one teens, 115 to 118, BP is systolic and 70s-80s over pal p, respiration 20-22. ABDOMEN: Soft, nontender. Minimal fluid wave. No palpable masses. GENITOURINARY: Shows no edema, no lesions. EXTREMITIES: Palpable pulses x4. No clubbing, cyanosis, or edema. NEUROLOGIC: Moving all extremities. He is awake and alert. Cranial nerves II-XII are equal and sym metrical. LABORATORY DATA AND IMAGING DATA: White count is 10.5, hemoglobin and hematocrit is 15.9 and 50.5, p latelet count 131, neutrophils 56, bands at 29, lymphocytes at 8. His INR is 1.4, he has D-dimer of 10.0. Blood gas shows pH 7.3, pCO2 of 33, pO2 of 30. Chemistries show sodium of 135, potassium 5.1, chloride 102, bicarbonate 19, anion gap is 16, BUN 73, creatinine 2.45, total bilirubin is 8, AST is 121 71, alkaline phosphatase 428. Beta natriuretic peptide is 235, lipase normal at 46. He h ad a chest x-ray done in the ER showed emphysematous changes and a large left subhilar mass is seen o n previous PET CT scan essentially unchanged. He had a brain CT done which showed no intracranial ab normalities. ASSESSMENT AND PLAN: Likely metastatic cancer. Patient was discharged from the hospital. There wer e discussions about be on palliative care. He was refusing hospice at the time and currently is want ing aggressive things done. He is on the schedule for a port to be inserted this week by Dr. Kim, I believe that is scheduled for the . He is feeling better after therapeutic tap paracentesis, b ut he still has ascites. He also has elevated transaminases and elevated bilirubin, nonalcoholic vinod atohepatitis. He has got acute on chronic renal insufficiency. Plan is to put him in the hospital. We will start in the IMCU. We will try to fluid resuscitate him and hopefully get him to at least O ncology floor as fast as we can. We will also try to discuss with family regarding future dispositio n, but at this point, it looks like he is going for aggressive route with a planned insertion of port for chemotherapy.
[2018-01-06 22:36] LABS: BF Segmented Neutrophils 13 %; Cell Count Non Hematic 72 %; Lymphocytes 15 %
[2018-01-06] MEDS ORDERED: Ondansetron PF 4 MG/2 ML Vial IVP PRN (22:41)
[2018-01-06 22:42] LABS: Troponin I 0.063 ng/mL (< 0.028)
[2018-01-06 22:45] LABS: Lactic Acid 10.8 mmol/L (0.5-2.2)
[2018-01-06] MEDS: Sodium Chloride 0.9% 1,000 ML IV PRN ×2 (22:56→23:50)
[2018-01-06 23:00] VITALS: BMI 29.2
[2018-01-06] MEDS: methylPREDNISolone Sod Succ/PF 125 MG/2 ML VIAL IVP SCH (23:48)
[2018-01-06] MEDS: Sodium Chloride 0.9% 1,000 ML IV SCH (23:54)
[2018-01-07] MEDS ORDERED: Norepinephrine 8 MG/250 ML BAG IVPB PRN (00:16)
[2018-01-07] MEDS ORDERED: Succinylcholine Chloride 20 MG/ML 10 ml SYRINGE FS ONE (01:00)
--- NOTE | 2018-01-07 01:47 | PDOC.EVN ---
Event Note - Event Note Event Note: Attending Note Consulted for Central Line placement by Dr Jose Goodson. Patient is found to have jailyn hemoptysis, tachycardia, dyspnea. Deteriorating clinical condition prompted us to inform Dr Goodson of our findings, and that we did not think patient would tolerate CVC placement. He has consulted Anesthesia for CVC placement. Dr Goodson has been in communication with Dr Jeronimo, the pulmonolgist/ Cdl Driver as well. Also see Dr Curtis's note.
[2018-01-07] MEDS ORDERED: Phenylephrine 0.25% Nasal Spray 15 ML BOT ONE (01:54)
[2018-01-07] MEDS ORDERED: PHENYLEPHRINE-NS 100 MCG/ML 10 ML SYRINGE ONE (02:02)
--- NOTE | 2018-01-07 02:46 | PDOC.EVN ---
Event Note - Event Note Event Note: Paged by nurse for central line placement. While in route to patient's room, code blue called and diverted to tower to run code. Resident team promptly reported to patient's bedside following code. Patient found to be in some respiratory distress with hemoptysis, tachycardia, tachypnea, and hypotension. Did not feel safe to place central line and contacted Dr. Jose Goodson who asked me to contact anesthesia for central line placement. Also updated Dr. Goodson on patient's declining clinical state. Patient's biggest concern during this time was his upper abdominal pain and requested pain medication. Informed family that anesthesia would be coming to place central line.
[2018-01-07] MEDS ORDERED: fentaNYL Citrate/PF 2,000 MCG in Sodium Chloride 0.9% 60 ML IV SCH (03:03)
[2018-01-07] MEDS ORDERED: Lorazepam 2 MG/ML VIAL SLOW IVP PRN ×3 (03:03→09:02)
[2018-01-07] MEDS ORDERED: Propofol 1,000 MG/100 ML VIAL IV PRN (03:03)
[2018-01-07] MEDS ORDERED: DISCONTINUE PREVIOUS NARCOTIC PAIN MEDICATIONS AND BENZODIAZEPINES FS SCH (03:03)
[2018-01-07] MEDS ORDERED: Fentanyl BOLUS 250 ML IVPB PRN (03:03)
[2018-01-07] MEDS ORDERED: Propofol BOLUS 1,000 MG/100 ML VIAL IV PRN (03:03)
[2018-01-07 03:11] LABS: Hemoglobin 13.1 g/dL (14.0-18.0); Mean Corpuscular HGB CONC 31.2 g/dL (32.0-36.0); Platelet Count 95 thou/uL (130-400); RBC Distribution Width 15.7 % (11.5-14.5); Red Blood Cell (RBC) Count 3.75 mill/uL (4.70-6.10); White Blood Cell (WBC) Count 8.5 thou/uL (4.8-10.8)
[2018-01-07 03:12] LABS: Band 15 % (5-11); Hypochromia SLIGHT = 6-15 cells (100X) (0-5/hpf); Lymphocytes 3 % (21-51); MDiff Complete? YES; Monocytes 7 % (0-10); Neutrophil 75 % (42-75); PLT Morphology Comment Appears Decreased
[2018-01-07 03:14] LABS: Base Excess (BEa) -24.9 mEq/L (-2.0 to +3.0); CO2 Tension 43.1 mmHg (35.0-45.0); Calcium, Ionized 1.12 mmol/L (1.12-1.30); Carboxyhemoglobin (COHb) 1.5 gm% (0.0-3.0); O2 Tension (PaO2) 99.5 mmHg (> 80.0); Potassium - ABG Lab 5.84 mmol/L (3.70-5.30)
[2018-01-07 03:21] LABS: pH, Arterial 6.89 (7.35-7.45)
[2018-01-07 03:21] LABS: ALT (SGPT) 72 U/L (8-55); AST (SGOT) 205 U/L (5-34); Albumin 2.2 g/dL (3.4-4.8); Alkaline Phosphatase 291 U/L (40-150); BUN (Urea Nitrogen) 72 mg/dL (8.4-25.7); Bilirubin, Total 7.5 mg/dL (0.2-1.2); Calc. Creatinine Clearance 41 mL/min (70-130); Calcium 8.3 mg/dL (7.8-10.44); Chloride 106 mmol/L (98-107); Estimated GFR-MDRD 25; Globulin 2.9 g/dL (2.4-3.5); Glucose 87 mg/dL (80-115); Potassium 6.3 mmol/L (3.5-5.1); Protein, Total 5.1 g/dL (5.8-8.1); Sodium 133 mmol/L (136-145)
[2018-01-07 03:22] LABS: ALV-art Gradient 131.825 (0-20); Puncture Site RBRACH
[2018-01-07 03:23] LABS: Carbon Dioxide Less than 8 mmol/L (23-31)
[2018-01-07] MEDS ORDERED: Albumin 25% 25 GM/100 ML BOT IVPB SCH ×2 (03:30→07:00)
[2018-01-07] MEDS ORDERED: Sodium Bicarb 50 MEQ/50 ML Abboject 8.4% SYRINGE IVP SCH ×2 (03:30→07:00)
[2018-01-07] MEDS ORDERED: Sodium Bicarb 50 MEQ/50 ML Abboject 8.4% SYRINGE ONE ×2 (06:43→06:44)
[2018-01-07] MEDS: methylPREDNISolone Sod Succ/PF 125 MG/2 ML VIAL IVP SCH (06:52)
[2018-01-07 06:53] LABS: Base Excess (BEa) -25.6 mEq/L (-2.0 to +3.0); Calcium, Ionized 1.14 mmol/L (1.12-1.30); Hemoglobin (Hb) 14.1 g/dL (14.0-18.0); O2 Tension (PaO2) 113.6 mmHg (> 80.0); Potassium - ABG Lab 5.69 mmol/L (3.70-5.30)
[2018-01-07 06:54] LABS: Puncture Site LR
[2018-01-07] MEDS: Sodium Chloride 0.9% 1,000 ML IV SCH (06:57)
[2018-01-07] MEDS ORDERED: Vasopressin 40 UNIT, Admixture Fee 1 EACH in Sodium Chloride 0.9% 100 ML IV SCH (07:00)
--- NOTE | 2018-01-07 07:44 | CON ---
DATE OF CONSULTATION: 01/06/2018 Patient is a 67-year-old gentleman who was admitted to the hospital by his family. There is a daught er at the bedside including his . He is here for marked shortness of breath. He was hypotensive in the ER. When I arrived, he is clearly very dyspneic. I spoke with Dr. Jose clayton, who is covering for the attending physician, Dr. Barba. The patient has got massive ascites. He needs emergency drainage of his ascites to improve his dyspnea. He recently underwent an ultrasound-guided biopsy of the left lung mass, which has shown presence of squamous cell carcinoma. He is scheduled to undergo chemotherapy. The patient unfortunately has got metastatic cancer. Presumably arising from primary lung pathology. Complicated history. He has history of hypertension, diabetes, hyperlipidemia, sleep apnea, peptic u lcer disease, arthritis, bladder cancer, skin cancer, metastatic carcinoma to the liver with re current ascites requiring multiple paracentesis. He has chronic pain. He has received BCG vaccination at one time for bladder cancer. PAST SURGICAL HISTORY: Multiple paracentesis, tonsils, eyelid surgery, vocal cord surgery. TOBACCO: As previously noted 2-3 pack a day for 25 years, quit smoking in 2004. ALCOHOL: Minimal. MEDICATIONS: List of medicine includes Aldactone 100 mg, Zyprexa 5, mirtazapine 15, Synthroid 75, in sulin, hydrocodone, Lasix 40 twice a day. ALLERGIES: None. REVIEW OF SYSTEMS: Otherwise unremarkable. PHYSICAL EXAMINATION: GENERAL: The patient is clearly in severe distress. VITAL SIGNS: His sats are 98%, blood pressure is 80/60, respirations about 25-30. CHEST: Minimal wheezing. CARDIAC: Sinus tachycardia. ABDOMEN: No masses. EXTREMITIES: Trace edema. LABORATORY DATA: White count 10,000, H&H 15 and 50, platelet count is 131. He has got 56 segs, 29 b ands. INR is 1.4. Sodium is 131. Lactic is elevated at 7.6. BNP is 235. X-ray shows left hilar mass. CAT scan of the head was negative. IMPRESSION: 1. Respiratory distress secondary to massive ascites secondary to metastatic liver. 2. Metastatic lung cancer, squamous cell left hilar mass. 3. Chronic obstructive pulmonary disease. 4. Azotemia, appears to be prerenal. 5. Hypertension. PLAN: He was started on broad-spectrum antibiotics. I agree again with steroids and neb treatments. Pain relief. I spoke to his and his daughter. He is a DNR. He DOES NOT WANT TO BE INTUBATED . Given morphine for comfort. This is a 45-minute critical care time. We will notify Dr. Thayer in the morning.
[2018-01-07 07:46] VITALS: BP 96/60
--- NOTE | 2018-01-07 08:34 | PRG ---
DATE OF SERVICE: 01/07/2018 SUBJECTIVE: The patient had a difficult night. He had 2 episodes of hypotension. He continues to d eteriorate throughout the morning. Presently he is on Levophed and vasopressin. His pH has been les s than 7. He is presently intubated. I have talked with his . OBJECTIVE: VITAL SIGNS: Temperature 98.1, pulse 105, blood pressure 94/49 and 96/60. GENERAL: The patient is awake, intubated. HEART: Regular rate and rhythm. LUNGS: Relatively clear. ABDOMEN: The abdomen is with ascites. LABORATORY: PH 6.9, CO2 37, O2 113, sodium 133, potassium 6.3, CO2 less than 8, creatinine 2.5, BUN 72. ASSESSMENT: 1. Respiratory distress. 2. Metastatic acidosis. 3. Metastatic lung cancer spread to the liver. 4. Chronic obstructive pulmonary disease. 5. Prerenal azotemia. 6. Hypertension. 7. Do not resuscitate. 8. Transitional bladder cancer. 9. History of tobacco abuse. 10. Sleep apnea. PLAN: The patient's prognosis is very poor. I have talked with the this morning. The patient is presently only on Levophed and vasopressin for life support. The patient is unable to sustain his blood pressure. The is presently on her way and is requesting withdraw all life support at thi s time and to make the patient very comfortable with Ativan and morphine. We will await her presence before withdrawal of life sustaining measures. Plan to discontinue the ET tube and make the patient as comfortable as possible with morphine and Ativan.
--- NOTE | 2018-01-07 08:44 | RAD ---
AP VIEW CHEST: HISTORY: Central line placement, intubation. FINDINGS: AP view chest is obtained on 01/07/2018. Comparison is made to the previous exam from 01/06/2018. AP view chest demonstrates nasogastric and endotracheal tubes to be in place. Cardiomegaly is seen. Pulmonary vascular congestion is seen. Bilateral airspace opacities seen. Area of asymmetric opacity remains in the left upper lobe. This may represent a left upper lobe mass. This has been present on previous comparison radiographs. There has been placement of a left subclavian central line distal tip overlying the right atrium. No evidence of post placement hemo- and pneumothorax seen. IMPRESSION: Nasogastric tube endotracheal tube, and left subclavian central lines are in good position. POS: [facility]
[2018-01-07 08:51] VITALS: TEMP 96.3
[2018-01-07] MEDS ORDERED: Morphine 10 MG/ML VIAL SLOW IVP PRN ×2 (09:03)
--- NOTE | 2018-01-08 14:34 | DS ---
DATE OF ADMISSION: 01/06/2018 DATE OF : 01/07/2018 See progress note from today. HOSPITAL COURSE: The patient has deteriorated rapidly. His ABG reveals him to be acidotic. He has remained hypotensive throughout the night, presently on Levophed and vasopressin. I have talked with the and multiple family members. The patient did not want intubation previously. He is on lif e sustaining measures at this time. The has made the decision to withdraw life support. His pr ognosis was very poor. Once the entire family was present, the pressors were stopped and the patient was extubated. The patient quickly. He was very comfortable, IV sedatives were given a nd family are at peace now.
--- NOTE | 2018-01-12 13:25 | EKG ---
Test Reason : Blood Pressure : / mmHG Vent. Rate : 121 BPM Atrial Rate : 121 BPM P-R Int : 188 ms QRS Dur : 080 ms QT Int : 282 ms P-R-T Axes : 027 076 033 degrees QTc Int : 400 ms Sinus tachycardia Low voltage QRS Cannot rule out Anterior infarct , age undetermined Abnormal ECG Confirmed by BJ RUTHERFORD ([id number]), web content editor ART GONZALEZ ([id number]) on 01/12/2018 1:25:12 PM Referred By: Confirmed By:BJ RUTHERFORD
== END 2018-01-07 09:53 | disposition expired | DRG 208 ==
LOC: ERS 18:02 → IMCU/EMU 22:16 → CCU 01-07 00:31
PROVIDERS: ADMIT Family Medicine; ATTEND Family Medicine
PROC: 0BH17EZ Insertion of Endotracheal Airway into Trachea, Via Natural or Artificial Opening (ICD-10-PCS; principal; 2018-01-06)
PROC: 5A1935Z Respiratory Ventilation, Less than 24 Consecutive Hours (ICD-10-PCS; 2018-01-06)
PROC: 05H633Z Insertion of Infusion Device into Left Subclavian Vein, Percutaneous Approach (ICD-10-PCS; 2018-01-06)
PROC: 0W9G3ZZ Drainage of Peritoneal Cavity, Percutaneous Approach (ICD-10-PCS; 2018-01-06)
DX: C78.00 Secondary malignant neoplasm of unspecified lung (principal); R18.0 Malignant ascites; E87.2 Acidosis; C78.7 Secondary malignant neoplasm of liver and intrahepatic bile duct; N17.9 Acute kidney failure, unspecified; R18.8 Other ascites; C67.9 Malignant neoplasm of bladder, unspecified; R00.0 Tachycardia, unspecified; I95.9 Hypotension, unspecified; E78.5 Hyperlipidemia, unspecified; K74.60 Unspecified cirrhosis of liver; G47.33 Obstructive sleep apnea (adult) (pediatric); F17.210 Nicotine dependence, cigarettes, uncomplicated; R06.03 Acute respiratory distress; J44.9 Chronic obstructive pulmonary disease, unspecified; I10 Essential (primary) hypertension; Z66 Do not resuscitate; Z51.5 Encounter for palliative care; E11.9 Type 2 diabetes mellitus without complications; M19.90 Unspecified osteoarthritis, unspecified site; Z79.4 Long term (current) use of insulin; E87.5 Hyperkalemia; R57.8 Other shock
CPT/HCPCS: 36415; 49083; 70450; 71045; 80053; 82140; 82330; 82803; 82805; 82945; 83605; 83690; 83880; 84157; 84484; 85025; 85060; 85379; 85610; 85730; 87040; 87070; 87077; 87186; 87205; 89051; 93005; 94002; 94640; 96361; 96365; 96367; J0692; J2001; J2060; J2270; J2930; J3010; J7050; J7620; P9047